=== PATIENT | female | born 1980 | race Hispanic/Latino ===

== ENCOUNTER 2020-03-30 14:57 | Emergency (ER) | payer OTHER ==
[~2020-03-30] VITALS: Ht 162.6 cm; Wt 103.4 kg
--- OUTSIDE RECORDS SUMMARY | 2020-03-30 14:59 | XMS REPORT ---
Author Author [facility] Organization [facility] Address Unknown Phone Unavailable Care Team Providers Care Engineering Analyst Name Role Phone Elen LEE PP Unavailable TANIYA GAMBLE Unavailable Unavailable ALL LEE M.D. Unavailable Unavailable Problems This patient has no known problems. Allergies, Adverse Reactions, Alerts This patient has no known allergies or adverse reactions. Medications This patient has no known medications. Encounters Start Date/Time End Date/Time [facility] ID 2017-10-25 09:19:00 2017-10-25 09:19:00 Outpatient [facility] [id number] 2017-09-27 10:50:00 2017-09-27 10:50:00 Outpatient [facility] [id number] Results Test Description Test Time Test Comments Text Results Atomic Results Result Comments NEEDLE EMG, 2 EXTREMITY 2018-09-01 17:43:00 INTR AOPERATIVE MONITORING REPORT Patient Name: Citlali Valdez [facility] Surgery Date: 08/22/2018 Pro: S/N - [id number] Monitoring began at 06:44 and ended at 09:30 Surgeon: Benjamin Gamble M.D. Examining Neurologist: Dora Estrada MD Monitoring Technologists: KONSTANTIN Ball Procedure:Lumbar Laminectomy and Discectomy L5-S1 Free-running EMG of the left and right Tibialis Anterior (L4-5), Lateral Gastrocnemius (L5-S2), and Abductor Hallicus (S1-2)muscle groups. After the initial short-acting intubation muscle relaxants wore off, Train of Four (TO4) neuro-muscluar junction testing consistently produced at least 2 out of 4 responses which helps to validate the sensitivity of all other EMG and/or motor function monitoring. Description : Intraoperative neurophysiological monitoring was performed using free-running EMG of L4-S2 innervated muscle groups. A real-time connection with the examining neurologist was established and maintained throughout the operative procedure by the monitoring technologist. Free-running EMG of L4-S2 innervated muscle group was monitored continuously throughout the operative procedure with no sustained neurotonic discharges seen. Conclusion : The absence of sustained neurotonic discharges on free-running EMG suggests that the nerve roots monitored remained undisturbed. Dora Estrada M.D. M51.36, M54.16 UE EXAM 2018-08-29 15:49:00 Surgical Pat hology Report Case: [id number] Authorizing Provider: Benjamin Gamble MD Collected: 08/22/2018 0748 Ordering Location: [facility] PERIOPERATIVE Received: 08/22/2018 0926 SERVICES Pathologist: Yury Modi MD Specimen: Disc L5-S1 VERTEBRAL COLUMN, INTERVERTEBRAL DISC, L5-S1, DISCECTOMY:FRAGMENTS OF FIBROCARTILAGE WITH MILD DEGENERATIVE CHANGESFRAGMENTS OF LIGAMENTUM FLAVUM AND BONE Signing Pathologist Direct Phone Line: [phone] signed by Yury Moid MD on 08/29/2018 at 3:49 [id number]; [id number] disc disease lumbar, lumbar radiculopathy Disc L5-M0Kqezszjy in saline labeled "disc L5-S1" is a 2.5 x 2.0 x 0.3 cm aggregate of pink-watkins to valencia-white, rubbery, fibrillar, cartilaginous and osseous tissue. The specimen is entirely submitted in cassette A1 for decalcification. KAH/DB/ew Performed FL, TRAINING INTERN IN OR/30 MINUTE INCREMENTS 2018-08-22 07:46:00 Reason for exam:- >lumbar stenosis FINAL REPORT Tech nique: Single intraoperative image of the lumbar spine FINDINGS: Surgical pointer projects posteriorly at L5-S1. Findings were discussed with Dr. Gamble in the operating room who agreed. Signed: Sumaya Simon MDReport Verified Date/Time: 08/22/2018 07:46:20 Reading Location: [facility] Radiology Reading Room ALYSIS W/ REFLEX URINE CULTURE 2018-08-19 15:23:00 COLOR (BEAKER) (test code = 470) Colorless CLARITY (BEAKER) (test code = 469) Clear SPECIFIC GRAVITY UA (BEAKER) (test code = 468) 1.001 1 .001-1.035 PH UA (BEAKER) (test code = 467) 6.5 5.0-8.0 PROTEIN UA (BEAKER) (test code = 464) Negative Negative GLUCOSE UA (BEAKER) (test code = 365) Negative Negative KETONES UA (BEAKER) (test code = 371) Negative Negative BILIRUBIN UA (BEAKER) (test code = 462) Negative Negative BLOOD UA (BEAKER) (test code = 461) Negative Negative NITRITE UA (BEAKER) (test code = 465) Negative Negative LEUKOCYTE ESTERASE UA (BEAKER) (test code = 466) Negative Negative UROBILINOGEN UA (BEAKER) (test code = 463) 0.2 mg/dL 0.2-1 .0 RBC UA (BEAKER) (test code = 519) < /HPF WBC UA (BEAKER) (test code = 520) < /HPF SQUAMOUS EPITHELIAL (BEAKER) (test code = 516) < /HPF SOURCE(BEAKER) (test code = 2795) RAD, CHEST, 2 [id number] 14:33:00Reason for Exam:->preopFINAL REPORT Chest, 2 views. Clinical History: preop Comparison Study: None Findings: The heart and lungs are within normal limits. The pleural spaces are clear. No significant bony or soft tissue abnormalities are seen. Cholecystectomy clips are noted. Impression: No active cardiopulmonary disease. Signed: Rolando Albertoeport Verified Date/Time: 08/19/2018 14:33:20 Reading Location: [address] Radiology Reading Room Electronically sign ed by: ROLANDO ALBERTO M.D. on 08/19/2018 02:33 PM BASIC METABOLIC PANEL 2018-08-19 13:27:00* Test Item Value Reference Range Comments SODIUM (BEAKER) (test code = 381) 137 meq/L 136-145 POTASSIUM (BEAKER) (test code = 379) 3.8 meq/L 3.5-5.1 CHLORIDE (BEAKER) (test code = 382) 105 meq/L 98-107 CO2 (BEAKER) (test code = 355) 25 meq/L 22-29 BLOOD UREA NITROGEN (BEAKER) (test code = 354) 10 mg/dL 7 -21 CREATININE (BEAKER) (test code = 358) 0.70 mg/dL 0.57-1.25 GLUCOSE RANDOM (BEAKER) (test code = 652) 85 mg/dL 70-105 CALCIUM (BEAKER) (test code = 697) 9.5 mg/dL 8.4-10.2 EGFR (BEAKER) (test code = 1092) 94 mL/min/1.73 sq m ESTIMATED GFR IS NOT ACCURATE CREATININE CLEARANCE IN PREDICTING GLOMERULAR FILTRATION RATE. ESTIMATED GFR IS NOT APPLICABLE FOR DIALYSIS PATIENTS. PT/[id number] 13:15:00* Test Item Value Reference Range Comments PROTIME (BEAKER) (test code = 759) 13.4 seconds 11.7-14.7 INR (BEAKER) (test code = 370) 1.0 <=5.9 PARTIAL THROMBOPLASTIN TIME (BEAKER) (test code = 760) 34.1 seco nds 22.5-36.0 RECOMMENDED COUMADIN/WARFARIN INR THERAPY RANGESSTANDARD DOSE: 2.0 - 3.0 Inclu edmar: PROPHYLAXIS for venous thrombosis, systemic embolization; TREATMENT for saulo ous thrombosis and/or pulmonary embolus.HIGH RISK: Target INR is 2.5-3.5 for pat ients with mechanical heart valves.CBC W/PLT COUNT & AUTO [id number] 13:04:00* Test Item Value Reference Range Comments WHITE BLOOD CELL COUNT (BEAKER) (test code = 775) 11.2 K/ L 3.5-10.5 RED BLOOD CELL COUNT (BEAKER) (test code = 761) 5.21 M/ L 3.93-5.22 HEMOGLOBIN (BEAKER) (test code = 410) 14.1 GM/DL 11.2-15.7 HEMATOCRIT (BEAKER) (test code = 411) 45.1 % 34.1-44.9 MEAN CORPUSCULAR VOLUME (BEAKER) (test code = 753) 86.6 fL 79.4-94.8 MEAN CORPUSCULAR HEMOGLOBIN (BEAKER) (test code = 751) 27.1 pg 25.6-32.2 MEAN CORPUSCULAR HEMOGLOBIN CONC (BEAKER) (test code = 752) 31.3 GM/DL 32.2-35.5 RED CELL DISTRIBUTION WIDTH (BEAKER) (test code = 412) 14.7 % 11.7-14.4 PLATELET COUNT (BEAKER) (test code = 756) 451 K/CU MM 150-45 0 MEAN PLATELET VOLUME (BEAKER) (test code = 754) 8.6 fL 9.4-12.3 NUCLEATED RED BLOOD CELLS (BEAKER) (test code = 413) 0 /100 WBC 0-0 NEUTROPHILS RELATIVE PERCENT (BEAKER) (test code = 429) 66 % LYMPHOCYTES RELATIVE PERCENT (BEAKER) (test code = 430) 26 % MONOCYTES RELATIVE PERCENT (BEAKER) (test code = 431) 7 % EOSINOPHILS RELATIVE PERCENT (BEAKER) (test code = 432) 1 % BASOPHILS RELATIVE PERCENT (BEAKER) (test code = 437) 0 % NEUTROPHILS ABSOLUTE COUNT (BEAKER) (test code = 670) 7.40 K/ L 1.56-6.13 LYMPHOCYTES ABSOLUTE COUNT (BEAKER) (test code = 414) 2.89 K/ L 1.18-3.74 MONOCYTES ABSOLUTE COUNT (BEAKER) (test code = 415) 0.76 K/ L 0.24-0.36 EOSINOPHILS ABSOLUTE COUNT (BEAKER) (test code = 416) 0.08 K/ L 0.04-0.36 BASOPHILS ABSOLUTE COUNT (BEAKER) (test code = 417) 0.05 K/ L 0.01-0.08 IMMATURE GRANULOCYTES-RELATIVE PERCENT (BEAKER) (test code = 280 1) 0 % 0-1 RPR, [id number] 05:26:00* Test Item Value Reference Range Comments RPR (test code = RPR) Non-Reactive Non-Reactive [id number] 05:09:00* Test Item Value Reference Range Comments WBC (test code = WBC) 12.5 K/cumm 4.4-10.5 RBC (test code = RBC) 3.29 M/cumm 3.75-5.20 Hemoglobin (test code = HGB) 9.2 gm/dL 12.2-14.8 Hematocrit (test code = HCT) 28.0 % 36.5-44.4 MCV (test code = MCV) 85.3 fL 80-100 MCH (test code = MCH) 28.0 pg 27.0-32.5 MCHC (test code = MCHC) 32.9 g/dL 32.0-37.5 RDW (test code = RDW) 14.1 % 11.5-14.5 Platelet Count (test code = PLTCT) 353 K/cumm 140-440 MPV (test code = MPV) 6.3 fL POC Glucose, [id number] 15:18:00* Test Item Value Reference Range Comments POC Glucose (test code = POCGLUC) 41 mg/dL 70-115 Maurisio specimen Blood Gas+pH+[id number] 15:07:00* Test Item Value Reference Range Comments pH, Blood Gas (test code = BGPH) 7.309 pH Units pCO2 (test code = PCO2) 54.0 mm Hg Bicarbonate (test code = HCO3) 27.1 Base Excess (test code = BE) -0.5 mmol/L tHB (test code = RTHB) 17.2 gm/dL Hematocrit, Blood Gas (test code = BGHCT) 52.6 % FIO2 % (test code = FIO2) 21 % Patient Temperature (test code = PTTEMP) 37.0 Degrees Celcius Comment (test code = COMMENT) NICPH Puncture Site (test code = PUNSITE) Umbilical Drawing Tech ID (test code = DRAWTECH) .Get. Respiratory Rate (test code = RESP RATE) 0 Blood Type and [id number] 14:08:00* Test Item Value Reference Range Comments ABO type (test code = ABO) O Rh Type (test code = RH) Positive Antibody Screen - [id number] 14:08:00* Test Item Value Reference Range Comments Antibody Screen (test code = ABSCR) Negative Hep B Surface [id number] 13:11:00* Test Item Value Reference Range Comments Hep Bs Ag (test code = HBSAG) Nonreactive Non-Reactive CBC LD with [id number] 13:08:00* Test Item Value Reference Range Comments WBC (test code = WBC) 11.0 K/cumm 4.4-10.5 RBC (test code = RBC) 4.01 M/cumm 3.75-5.20 Hemoglobin (test code = HGB) 11.1 g/dL 12.2-14.8 Hematocrit (test code = HCT) 34.3 % 36.5-44.4 MCV (test code = MCV) 85.7 fL 80.0-100.0 MCH (test code = MCH) 27.7 pg 27.0-32.5 MCHC (test code = MCHC) 32.3 g/dL 32.0-37.5 RDW (test code = RDW) 14.3 % 11.5-14.5 Platelet Count (test code = PLTCT) 393 K/cumm 140-440 MPV (test code = MPV) 6.7 fL Diff Method (test code = DIFFM) Auto Neutrophil (test code = NEUT) 67.7 % 36.0-70.0 Lymphocyte (test code = LYMPH) 24.5 % 12.0-44.0 Monocyte (test code = MONO) 6.2 % 0.0-11.0 Eosinophil (test code = EOS) 1.2 % 0.0-7.0 Basophil (test code = BASO) 0.4 % 0.0-2.0 Neutro Abs (test code = ANEUT) 7.4 K/cumm 1.6-7.4 Lymph Abs (test code = ALYMPH) 2.7 K/cumm 0.5-4.6 [place] Abs (test code = AMONO) 0.7 K/cumm 0.0-1.2 Eos Abs (test code = AEOS) 0.1 K/cumm 0.0-0.7 Baso Abs (test code = ABASO) 0.0 K/cumm 0.0-0.2
[2020-03-30] MEDS ORDERED: ONDANSETRON HCL INJ 2MG/ML 2ML 2 MG/ML VIAL IV ONE (15:24)
[2020-03-30] MEDS ORDERED: SODIUM CHLORIDE 0.9% 1000ML 1,000 ML IV STA (15:24)
[2020-03-30] MEDS ORDERED: DICYCLOMINE HCL 20 MG/2 ML VIAL IM ONE (15:30)
[2020-03-30] MEDS ORDERED: MORPHINE SULFATE INJ 4 MG/ML INJ 1ML IV ONE ×2 (17:30→20:30)
[2020-03-30 17:52] LABS: COLOR,URINE AMBER (YELLOW); KETONES,URINE 3+ (NEGATIVE); LEUKOCYTE ESTERASE ,URINE NEGATIVE (NEGATIVE); NITRITE,URINE NEGATIVE (NEGATIVE); PROTEIN,URINE DIPSTICK 2+ (NEGATIVE)
[2020-03-30 17:53] LABS: BILIRUBIN,URINE SMALL (NEGATIVE); URINE UROBILINOGEN 1 mg/dL (0.2 - 1)
[2020-03-30 17:54] LABS: CLARITY,URINE CLOUDY (CLEAR)
[2020-03-30 18:03] LABS: RBC,URINE 0-5 /HPF (0-5)
[2020-03-30 18:06] LABS: BACTERIA,URINE RARE /HPF; EPITHELIAL CELLS,URINE FEW /LPF
[2020-03-30 18:34] LABS: BASOPHILS # (AUTO) 0.1 (0.0-0.1); BASOPHILS % 0.3 % (0.0-1.0); EOSINOPHILS # (AUTO) 0.1 (0.0-0.4); EOSINOPHILS % 0.8 % (0.0-6.0); HEMATOCRIT 43.3 % (34.2-44.1); HEMOGLOBIN 13.8 g/dL (12.0-16.0); LYMPHOCYTES # (AUTO) 3.1 (1.0-3.2); LYMPHOCYTES % 20.6 % (18.0-39.1); MEAN CORPUSCULAR HEMOGLOBIN 28.2 pg (28-32); MEAN CORPUSCULAR HGB CONC 31.9 g/dL (31-35); MEAN CORPUSCULAR VOLUME 88.4 fL (81-99); MONOCYTES # (AUTO) 0.9 (0.2-0.8); MONOCYTES % 5.9 % (4.4-11.3); NEUTROPHILS # (AUTO) 10.6 (2.1-6.9); NEUTROPHILS % 72.1 % (38.7-80.0); PLATELET COUNT 329 x10e3/uL (140-360)
[2020-03-30 18:54] LABS: ALANINE AMINOTRANSFERASE 26 IU/L (0-55); ALBUMIN 3.7 g/dL (3.5-5.0); ALKALINE PHOSPHATASE 105 IU/L (40-150); ANION GAP 14.4 mmol/L (8-16); BLOOD UREA NITROGEN 7 mg/dL (7-26); BUN/CREATININE RATIO 9 (6-25); CALCIUM 9.3 mg/dL (8.4-10.2); CARBON DIOXIDE 25 mmol/L (22-29); CHLORIDE 105 mmol/L (98-107); CREATININE, SERUM 0.81 mg/dL (0.57-1.11); EST GLOMERULAR FILTRATION RATE > 60 ML/MIN (60-); GLUCOSE 87 mg/dL (74-118); LIPASE 7 U/L (8-78); POTASSIUM 3.4 mmol/L (3.5-5.1); SODIUM 141 mmol/L (136-145)
[2020-03-30] MEDS ORDERED: ONDANSETRON HCL INJ 2MG/ML 2ML 2 MG/ML VIAL IV STA (19:53)
--- NOTE | 2020-03-30 20:08 | Diagnostic Imaging Report ---
CT Abdomen And Pelvis with Intravenous Contrast INDICATION: ^LEFT LOWER ABD PAIN ^[id number] ^[id number] TECHNIQUE: Thin collimation axial images obtained from the diaphragm to the level of the pubic symphysis following the uneventful administration of 100 cc of low osmolar, nonionic intravenous contrast. Dose reduction techniques used: Automated exposure control, adjustment of the mAs and/or kVp according to patient size, standardized low-dose protocol, and/or iterative reconstruction technique. RADIATION DOSE: Total DLP: 841.72 mGy*cm Estimated effective dose: (DLP x 0.015 x size factor) mSv CTDIvol has been reviewed. It is below the limits set by the Radiation Protocol Committee (RPC). COMPARISON: None. ABDOMEN FINDINGS: Lung Bases: Clear. The visualized portions of the mediastinum are normal. Liver: Steatosis. No evidence for mass. Gallbladder: Absent. No biliary ductal dilatation. Pancreas: Normal attenuation without mass or ductal dilatation. Spleen: Normal in size. No evidence of mass. Adrenal Glands: No evidence for mass. Kidneys: Right: Normal enhancement. No soft tissue mass. No hydronephrosis. Left: Normal enhancement. No soft tissue mass. No hydronephrosis. Lymph Nodes: No lymphadenopathy. Aorta: Normal in diameter PELVIS FINDINGS: Bowel: Stomach: Normal. Small Bowel: Normal in caliber with normal wall thickness. Large Bowel: Diverticulosis of the descending colon. There is no plain diverticulum in the mid/distal descending colon without associated fluid collection. No significant diverticulosis of the sigmoid colon Appendix: Normal. Bladder: Normal. The uterus is present and contains an intrauterine device in appropriate position. No adnexal mass. Peritoneum/retroperitoneum: Trace amount of fluid along the left paracolic. No free air. No loculated fluid collection. Bones: Unremarkable for age. IMPRESSION: 1. Acute diverticulitis of the descending colon. No abscess formation. 2. Steatosis. 3. Cholecystectomy. Signed by: Dr. Khoi Frances MD on 03/30/2020 8:05 PM
[2020-03-30] MEDS ORDERED: CIPROFLOXACIN 500 MG TAB PO ONE (20:30)
[2020-03-30] MEDS ORDERED: METRONIDAZOLE 500 MG TAB PO ONE (20:30)
--- NOTE | 2020-03-30 20:35 | NUR ---
PT MEDICATED FOR PAIN PER MERRY GO ROUND OPERATOR ORDERS, TOLERATED WELL, V/S/S
[2020-03-30] MEDS ORDERED: SODIUM CHLORIDE 0.9% 50ML 50 ML ONE (21:07)
[2020-03-30] MEDS ORDERED: IOPAMIDOL 370 MG/ML 200 ML INFUS..BTL INJ ONE (21:08)
== END 2020-03-31 00:15 | disposition home or self-care (01) ==
LOC: ER 14:57
DX: R10.32 Left lower quadrant pain (principal); R11.0 Nausea; K57.32 Diverticulitis of large intestine without perforation or abscess without bleeding
CPT/HCPCS: 36415; 74177; 80053; 81001; 81025; 83690; 85025; 99284; J0500; J2270; J2405; J7030; Q9967

== ENCOUNTER 2020-04-05 09:39 | Inpatient (IN) | payer OTHER ==
[~2020-04-05] VITALS: Ht 162.6 cm; Wt 103.4 kg
--- OUTSIDE RECORDS SUMMARY | 2020-04-05 09:42 | XMS REPORT | Clinical Summary ---
Author Author [facility] Organization [facility] Address Unknown Phone Unavailable Care Team Providers Care Head Of Music Name Role Phone Asked, No Pcp PCP Unavailable Allergies No Known Allergies Medications No known medications Active Problems Not on file Family History Medical History Relation Name Comments Stroke Maternal Grandmother Diabetes Paternal Grandfather Relation Name Status Comments Father Alive Maternal Grandfather Maternal Grandmother Mother Alive Paternal Grandfather Paternal Grandmother Alive Social History Date Tobacco Use Types Packs/Day Years Used Quit: 05/05/2017 Former Smoker Cigarettes Smokeless Tobacco: Never Used Tobacco Cessation: Counseling Given: No Drinks/Week oz/Week Comments Alcohol Use No Sex Assigned at Date Recorded Not on file Industry Job Start Date Occupation Not on file Not on file Not on file Travel End Travel History Travel Start No recent travel history available. Last Filed Vital Signs Not on file Plan of Treatment Health Maintenance Due Date Last Done Comments CERVICAL CANCER SCREENING 2001 INFLUENZA VACCINE 06/25/2020 Results Not on fileafter 04/05/2019 Insurance Type Payer Benefit Subscriber ID Effective Phone Address Plan / Dates Group [facility] xxxxxxxxx 20 [id number] PLAN [facility] Advance Directives For more information, please contact: [phone] Patient Scrap Drop Operator Explanation Type Date Recorded Advance Directives, 02/23/2016 2:18 PM Living Will and Medical Power of Supervisor Sample Preparation Advance Directives, 10/05/2017 7:00 PM Living Will and Medical Power of Supervisor Sample Preparation Advance Directives, 03/25/2018 6:53 PM Living Will and Medical Power of Supervisor Sample Preparation
--- OUTSIDE RECORDS SUMMARY | 2020-04-05 09:42 | XMS REPORT | Clinical Summary ---
Author Author [facility]ID [facility] Address Unknown Phone Unavailable Care Team Providers Care Aerodynamicist Name Role Phone Faby Romero PCP Allergies Comments Active Allergy Reactions Severity Noted Date Latex Rash Low 08/19/2018 Throat swells up Pork/Porcine Containing Shortness Of High 2017 Products Breath, Itching Medications End Date Status Medication Sig Dispensed Refills Start Date Active gabapentin (NEURONTIN) Take 300 mg 0 300 MG capsule by mouth 3 (three) times daily. Active Problems Problem Noted Date Lumbar radiculopathy 08/22/2018 DDD (degenerative disc disease), lumbar 08/22/2018 Social History Date Tobacco Use Types Packs/Day Years Used Never Smoker Smokeless Tobacco: Never Used Alcohol Use Drinks/Week oz/Week Comments No Sex Assigned at Date Recorded Not on file Industry Job Start Date Occupation Not on file Not on file Not on file Travel End Travel History Travel Start No recent travel history available. Last Filed Vital Signs Not on file Plan of Treatment Not on file Implants Device Identifier Shelf Expiration Date Model / Serial / L ot Implanted Type Area Manufactur er 12/10/2019 [id number] / / [id number] Floseal Vhsd Full Strlprep 5ml Cement/Tez Spine Lumbar [id number] - [id number] ler/Adhesi SCI Implanted: Qty: 2 on 08/22/2018 by Benjamin Weston MD Results Not on fileafter 04/05/2019 Insurance Payer Benefit Subscriber ID Type Phone Address Plan / Group MEDICAID - MEDICAID [place]GD MEDICAID xxxxxxxxx Medica id [facility] Contracted MEDICAID MEDICAID xxxxxxxxx [place] [id number] Advance Directives For more information, please contact: [place] [id number] [place] [address] Date Inactivated Comments Code Status Date Activated 08/22/2018 6:17 PM Full Code 08/22/2018 5:30 AM This code status was determined by: Patient
[2020-04-05] MEDS ORDERED: ONDANSETRON HCL INJ 2MG/ML 2ML 2 MG/ML VIAL IV STA (09:49)
[2020-04-05] MEDS ORDERED: MORPHINE SULFATE INJ 4 MG/ML INJ 1ML IV PRN ×2 (10:00→14:15)
[2020-04-05] MEDS ORDERED: SODIUM CHLORIDE 0.9% 1000ML 1,000 ML IV SCH (10:00)
[2020-04-05 10:20] LABS: BASOPHILS # (AUTO) 0.1 (0.0-0.1); BASOPHILS % 0.4 % (0.0-1.0); EOSINOPHILS # (AUTO) 0.2 (0.0-0.4); EOSINOPHILS % 1.3 % (0.0-6.0); HEMATOCRIT 43.5 % (34.2-44.1); HEMOGLOBIN 14.2 g/dL (12.0-16.0); LYMPHOCYTES # (AUTO) 2.8 (1.0-3.2); LYMPHOCYTES % 23.7 % (18.0-39.1); MEAN CORPUSCULAR HGB CONC 32.6 g/dL (31-35); MEAN CORPUSCULAR VOLUME 85.8 fL (81-99); MONOCYTES # (AUTO) 0.8 (0.2-0.8); MONOCYTES % 6.5 % (4.4-11.3); NEUTROPHILS % 67.8 % (38.7-80.0); PLATELET COUNT 387 x10e3/uL (140-360); RED BLOOD COUNT 5.07 x10e6/uL (3.6-5.1); RED CELL DISTRIBUTION WIDTH 13.6 % (11.7-14.4)
[2020-04-05 10:30] LABS: CLARITY,URINE SL CLOUDY (CLEAR); COLOR,URINE ORANGE (YELLOW); LEUKOCYTE ESTERASE ,URINE TRACE (NEGATIVE); NITRITE,URINE NEGATIVE (NEGATIVE)
[2020-04-05 10:31] LABS: PROTEIN,URINE DIPSTICK 1+ (NEGATIVE); URINE UROBILINOGEN 0.2 mg/dL (0.2 - 1)
[2020-04-05 10:32] LABS: BILIRUBIN,URINE MODERATE (NEGATIVE)
[2020-04-05 10:33] LABS: KETONES,URINE >=160 (NEGATIVE)
[2020-04-05 10:38] LABS: BACTERIA,URINE RARE /HPF; EPITHELIAL CELLS,URINE FEW /LPF; RBC,URINE 21-50 /HPF (0-5); WBC,URINE (MAN) >50 /HPF (0-5)
[2020-04-05 10:40] LABS: ALANINE AMINOTRANSFERASE 49 IU/L (0-55); ALBUMIN 3.8 g/dL (3.5-5.0); ALBUMIN/GLOBULIN RATIO 0.9 (0.8-2.0); ALKALINE PHOSPHATASE 98 IU/L (40-150); ANION GAP 16.3 mmol/L (8-16); BLOOD UREA NITROGEN 7 mg/dL (7-26); BUN/CREATININE RATIO 8 (6-25); CALCIUM 9.4 mg/dL (8.4-10.2); CARBON DIOXIDE 22 mmol/L (22-29); CHLORIDE 107 mmol/L (98-107); CREATINE KINASE 60 IU/L (29-168); CREATININE, SERUM 0.84 mg/dL (0.57-1.11); EST GLOMERULAR FILTRATION RATE > 60 ML/MIN (60-); GLUCOSE 104 mg/dL (74-118); POTASSIUM 3.3 mmol/L (3.5-5.1); SODIUM 142 mmol/L (136-145)
[2020-04-05 10:57] LABS: INR 0.97; PROTHROMBIN TIME 13.5 seconds (11.9-14.5)
--- NOTE | 2020-04-05 12:52 | Diagnostic Imaging Report ---
CT of the abdomen and pelvis, with contrast. History: Abdominal pain. Comparison: CT abdomen/pelvis with contrast from 03/30/2020. Technique: Multidetector CT scanning of the abdomen and pelvis was performed from the level of the lung bases to the inferior pubic rami after intravenous administration of contrast. Coronal and sagittal multiplanar reformations were obtained. RADIATION DOSE: Total DLP: 875.00 mGy*cm Dose modulation, iterative reconstruction, and/or weight based adjustment of the mA/kV was utilized to reduce the radiation dose to as low as reasonably achievable. FINDINGS: The lung bases are unremarkable. The imaged portion of the heart demonstrates no significant abnormalities. The liver is diffusely decreased in attenuation compatible with fatty infiltration. No focal hepatic abnormality is identified. The gallbladder is surgically absent. There is no biliary ductal dilatation. The stomach, spleen, pancreas, and bilateral adrenal glands are unremarkable. Instantly noted is a splenule adjacent to the spleen. The kidneys are normal in size and location and enhance symmetrically. There is no evidence for hydronephrosis. The ureters are normal in course and caliber without evidence for radiopaque stone or abnormal dilatation. The urinary bladder demonstrates no significant abnormalities. An intrauterine device is identified in place. The uterus and adnexa are otherwise grossly unremarkable. The abdominal aorta is normal course and caliber. The IVC is unremarkable. Please note evaluation the bowel is limited without the use of enteric contrast material. Again identified is wall thickening and adjacent inflammatory change about the descending colon in the region of diverticula. Adjacent inflammatory change is slightly less prominent than from the prior examination from 03/30/2020. There is no evidence for perforation or organized fluid collection to suggest abscess rotation. The remaining visualized loops of small and large bowel demonstrate no evidence of obstruction or inflammation. The appendix is visualized and appears unremarkable. There is no ascites or intraperitoneal free air. No abnormally enlarged lymph nodes are identified within the abdomen or pelvis. The osseous structures demonstrate no evidence for acute fracture or destructive process. The extraperitoneal soft tissues are unremarkable. IMPRESSION: Again identified are CT findings compatible with acute diverticulitis of the descending colon with slight interval reduction in adjacent inflammatory change. No evidence for perforation or abscess from a patient. CT findings suggestive of hepatic steatosis. Signed by: Dr. Aly Oliveros MD on 04/05/2020 12:48 PM
--- NOTE | 2020-04-05 14:16 | Emergency Department Note ---
History of Present Illnes History of Present Illness Chief Complaint: Abdominal Complaints Stated Complaint: ABD PAIN History of Present Illness This is a 39 year old female complaining of continued LLQ pain for >1 week, went to her PCP today and was told to come to the ED for further management. Historian: Patient Onset (how long ago): day(s) Radiation: non-radiation Severity: moderate Onset quality: gradual Duration (how long): day(s) Progression: worsening Previous service: tests performed, one or more referrals Past Medical/Family History Physician Review I have reviewed the patient's past medical and family history. Any updates have been documented here. Past Medical History Recent Fever: No Clinical Suspicion of Infectio: No New/Unexplained Change in Ment: No Past Medical History: TIA Other Medical History: IBSD, DIVERTICULITIS Past Surgical History: Cholecysctectomy, Social History Smoking Cessation: Former smoker Counseling Performed: No Alcohol Use: None Any Illegal Drug Use: No TB Exposure/Symptoms: No Physically hurt or threatened: No Other Last Tetanus: UNKNOWN Any Pre-Existing Lines (PICC,: No Is patient up to date on immun: No Last Flu: unk Last Pneumovax: ood Review of Systems Review of Systems Constitutional: no symptoms EENTM: no symptoms Cardiovascular: no symptoms Gastointestinal/Abdominal: no symptoms, abdominal pain, nausea, vomiting Genitourinary: no symptoms Musculoskeletal: no symptoms Integumentary: no symptoms Neurological: no symptoms Psychological: no symptoms Endocrine: no symptoms Hematological/Lymphatic: no symptoms Review of other systems All other systems reviewed and negative. Physical Exam Related Data Allergies: Coded Allergies: No Known Allergies (Unverified , 03/30/20) Triage Vital Signs Vital Signs Date Time Temp Pulse Resp B/P (MAP) Pulse Ox O2 Delivery O2 Flow Rate FiO2 04/05/20 09:42 97.7 71 18 146/95 98 Physical Exam CONSTITUTIONAL Constitutional: well-developed, well-nourished HENT HENT: normocephalic, atraumatic, oropharynx clear/moist, nose normal HENT - Ear: left ext ear normal, right ext ear normal EYES Eyes: PERRL, conjunctivae normal NECK Neck: ROM normal PULMONARY Pulmonary: effort normal, breath sounds normal CARDIOVASCULAR Cardiovascular: regular rhythm, heart sounds normal, capillary refill normal, normal rate GASTROINTESTINAL Abdominal: soft, bowel sounds normal, tender GENITOURINARY Genitourinary: exam deferred SKIN Skin: warm, dry MUSCULOSKELETAL Musculoskeletal: ROM normal NEUROLOGICAL Neurological: alert, oriented x 3, no gross motor or sensory deficits PSYCHOLOGICAL Psychiatric/behavioral: mood/affect normal (tearful), judgement normal Results Laboratory Lab results reviewed: Yes Laboratory comments Laboratory Tests Test 04/05/20 10:20 04/05/20 09:55 Prothrombin Time 13.5 seconds (11.9-14.5) Prothromb Time International Ratio 0.97 White Blood Count 11.76 x10e3/uL (4.8-10.8) Red Blood Count 5.07 x10e6/uL (3.6-5.1) Hemoglobin 14.2 g/dL (12.0-16.0) Hematocrit 43.5 % (34.2-44.1) Mean Corpuscular Volume 85.8 fL (81-99) Mean Corpuscular Hemoglobin 28.0 pg (28-32) Mean Corpuscular Hemoglobin Concent 32.6 g/dL (31-35) Red Cell Distribution Width 13.6 % (11.7-14.4) Platelet Count 387 x10e3/uL (140-360) Neutrophils (%) (Auto) 67.8 % (38.7-80.0) Lymphocytes (%) (Auto) 23.7 % (18.0-39.1) Monocytes (%) (Auto) 6.5 % (4.4-11.3) Eosinophils (%) (Auto) 1.3 % (0.0-6.0) Basophils (%) (Auto) 0.4 % (0.0-1.0) Neutrophils # (Auto) 8.0 (2.1-6.9) Lymphocytes # (Auto) 2.8 (1.0-3.2) Monocytes # (Auto) 0.8 (0.2-0.8) Eosinophils # (Auto) 0.2 (0.0-0.4) Basophils # (Auto) 0.1 (0.0-0.1) Absolute Immature Granulocyte (auto 0.03 x10e3/uL (0-0.1) Urine Color [place] (YELLOW) Urine Clarity Sl cloudy (CLEAR) Urine pH 6.5 (5 - 7) Urine Specific [place] >=1.030 (1.010-1.025) Urine Protein 1+ (NEGATIVE) Urine Glucose (UA) Negative (NEGATIVE) Urine Ketones >=160 (NEGATIVE) Urine Blood Trace (NEGATIVE) Urine Nitrite Negative (NEGATIVE) Urine Bilirubin Moderate (NEGATIVE) Urine Urobilinogen 0.2 mg/dL (0.2 - 1) Urine Leukocyte Esterase Trace (NEGATIVE) Urine RBC 21-50 /HPF (0-5) Urine WBC >50 /HPF (0-5) Urine Epithelial Cells Few /LPF (NONE) Urine Bacteria Rare /HPF (NONE) Urine Test Negative (NEGATIVE) Sodium Level 142 mmol/L (136-145) Potassium Level 3.3 mmol/L (3.5-5.1) Chloride Level 107 mmol/L (98-107) Carbon Dioxide Level 22 mmol/L (22-29) Anion Gap 16.3 mmol/L (8-16) Blood Urea Nitrogen 7 mg/dL (7-26) Creatinine 0.84 mg/dL (0.57-1.11) Estimat Glomerular Filtration Rate > 60 ML/MIN (60-) BUN/Creatinine Ratio 8 (6-25) Glucose Level 104 mg/dL (74-118) Calcium Level 9.4 mg/dL (8.4-10.2) Total Bilirubin 0.3 mg/dL (0.2-1.2) Aspartate Amino Transf (AST/SGOT) 49 IU/L (5-34) Alanine Aminotransferase (ALT/SGPT) 49 IU/L (0-55) Alkaline Phosphatase 98 IU/L (40-150) Creatine Kinase 60 IU/L (29-168) Creatine Kinase MB 0.90 ng/mL (0-5.0) Troponin I < 0.001 ng/mL (0-0.300) Total Protein 7.9 g/dL (6.5-8.1) Albumin 3.8 g/dL (3.5-5.0) Globulin 4.1 g/dL (2.3-3.5) Albumin/Globulin Ratio 0.9 (0.8-2.0) Lipase 12 U/L (8-78) Imaging Y: Yes Impressions IMPRESSION: Again identified are CT findings compatible with acute diverticulitis of the descending colon with slight interval reduction in adjacent inflammatory change. No evidence for perforation or abscess from a patient. CT findings suggestive of hepatic steatosis. Signed by: Dr. Aly Oliveros MD on 04/05/2020 12:48 PM Diagnostics Tests Diagnostic test(s) reviewed: Yes Critical Care Time Subsequent provider I assumed direction of critical care for this patient from another provider of my specialty. Assessment & Plan Assessment & Plan Problems: (1) Diverticulitis Assessment & Plan Diverticulitis -Continued pain and inability tolerated oral intake -Levaquin and Flagyl initiated -Dr. Silvino Georges consulted Last Vital Signs Date Time Temp Pulse Resp B/P (MAP) Pulse Ox O2 Delivery O2 Flow Rate FiO2 04/05/20 09:42 97.7 71 18 146/95 98 Medications in the ED Morphine Sulfate 6 mg ONCE PRN IV SEVERE PAIN (7-10); Start 04/05/20 at 10:00; Stop 04/12/20 at 09:59; Status UNV Ondansetron HCl 4 mg NOW STAT IV ; Start 04/05/20 at 09:49; Stop 04/05/20 at 09:50; Status UNV Sodium Chloride 1,000 ml @ 0 mls/hr Q0M IV ; Start 04/05/20 at 10:00; Stop 05/05/20 at 09:59; Status UNV OLIVIA RUTH DO April 05, 2020 10:15
[2020-04-05] MEDS ORDERED: IOPAMIDOL 370 MG/ML 200 ML INFUS..BTL INJ ONE (14:40)
[2020-04-05] MEDS ORDERED: SODIUM CHLORIDE 0.9% 50ML 50 ML ONE (14:40)
[2020-04-05] MEDS: ONDANSETRON HCL INJ 2MG/ML 2ML 2 MG/ML VIAL IV PRN ×2 (14:47→17:58)
--- OUTSIDE RECORDS SUMMARY | 2020-04-05 14:48 | XMS REPORT | Clinical Summary ---
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
--- OUTSIDE RECORDS SUMMARY | 2020-04-05 14:48 | XMS REPORT | Clinical Summary ---
Author Author DAVID [facility] Address Unknown Phone Unavailable Care Team Providers Care Party Plan Sales Unit Advisor Name Role Phone Faby Romero PCP Allergies [...] ot Implanted Type Area Manufactur er 12/10/2019 [id number] / / [id number] Floseal Vhsd Full Strlprep 5ml Cement/Tez Spine Lumbar [id number] - [id number] ler/Adhesi SCI Implanted: Qty: 2 on 08/22/2018 by Benjamin Weston MD Results Not on fileafter 04/05/2019 Insurance Payer Benefit Subscriber ID Type Phone Address Plan / Group MEDICAID - MEDICAID [place]GD MEDICAID xxxxxxxxx Medica id [facility] Contracted MEDICAID MEDICAID xxxxxxxxx Medicaid [place] [id number] Advance Directives For more information, please contact: [phone] [place] [address] Date Inactivated Comments Code Status Date Activated 08/22/2018 6:17 PM Full Code 08/22/2018 5:30 AM This code status was determined by: Patient
[2020-04-05] MEDS ORDERED: LEVOFLOXACIN 750MG/D5W 150ML 150 ML IV STA (15:27)
[2020-04-05 15:53] VITALS: BP 136/68
--- NOTE | 2020-04-05 15:53 | NUR ---
Received patient from ER. Awake and alert, lying in bed. Respiration even and unlabored without SOB. Patient verbalized tolerable pain in ABD at this time. Call light in reach.
[2020-04-05] MEDS ORDERED: POTASSIUM CHLORIDE 20 MEQ TAB CR PO ONE (16:00)
[2020-04-05 16:10] VITALS: BP 136/68
--- NOTE | 2020-04-05 16:45 | History and Physical ---
HISTORY OF PRESENT ILLNESS: A 39-year-old female with past medical history positive for recurrent diverticulitis, history of obesity. The patient came to the emergency room complaining of fever. She also is having left flank pain. The patient was found to have diverticulitis, admitted to the hospital. REVIEW OF SYSTEMS: CARDIOVASCULAR: No chest pain or palpitation. RESPIRATORY: No shortness of breath. No cough. GASTROINTESTINAL: No nausea or vomiting. No diarrhea. She has left lower quadrant pain with left flank pain. No blood in the stools. No vomiting blood. GENITOURINARY: No frequency or dysuria. ALLERGIES: NOT ALLERGIC TO ANY MEDICATION. SOCIAL HISTORY: She does not smoke. She does not drink. PAST MEDICAL HISTORY: Positive for recurrent diverticulitis at least four over the last year. PHYSICAL EXAMINATION: HEART: Showed regular rhythm. Normal S1, S2 sound. LUNGS: Clear bilaterally. ABDOMEN: Soft, minimal tenderness on the left flank area. EXTREMITIES: Show no edema. LABORATORY DATA: Blood work, CT scans reports are still not in the computer yet, but I received a verbal report from the emergency room physician about the diagnosis of diverticulitis from the CT of the abdomen. FINAL IMPRESSION: 1. Acute diverticulitis. 2. Obesity. 3. Fever. PLAN OF TREATMENT: We are going to start Levaquin. Continue Flagyl. Also pain management, IV fluids. We are going to get a Gastroenterology consult with Dr. Madi Georges for Gastroenterology. Diet is going to be n.p.o. for now. Time spent around 45 minutes. MD KELLI Hudson/ASNDRA /[id number]
[2020-04-05] MEDS: METRONIDAZOLE 500MG/NS 100ML 100 ML IV SCH (18:28)
[2020-04-05] MEDS ORDERED: SODIUM CHLORIDE 0.9% 250ML 250 ML ONE (18:34)
--- NOTE | 2020-04-05 19:00 | NUR ---
Report given to shift commander. Respiration even and unlabored without SOB. Call light in reach.
--- NOTE | 2020-04-05 19:27 | NUR ---
Spoke with Dr. Silvino Georges about the consultation. States that he is going to see the patient tonight.
[2020-04-05 19:55] VITALS: BP 119/56
[2020-04-05] MEDS: HYDROMORPHONE 2MG/ML 2 MG/ML ML IV PRN (20:15)
[2020-04-05 21:00] VITALS: BP 119/56
[2020-04-06] VITALS (8 sets, daily range): BP systolic 99–119; BP diastolic 59–74
[2020-04-06] MEDS: METRONIDAZOLE 500MG/NS 100ML 100 ML IV SCH ×5 (00:04→23:44)
[2020-04-06] MEDS: ONDANSETRON HCL INJ 2MG/ML 2ML 2 MG/ML VIAL IV PRN ×5 (00:04→22:59)
[2020-04-06] MEDS: HYDROMORPHONE 2MG/ML 2 MG/ML ML IV PRN ×4 (01:38→22:59)
[2020-04-06 05:22] LABS: BASOPHILS # (AUTO) 0.1 (0.0-0.1); BASOPHILS % 0.6 % (0.0-1.0); EOSINOPHILS # (AUTO) 0.2 (0.0-0.4); EOSINOPHILS % 2.5 % (0.0-6.0); HEMATOCRIT 40.7 % (34.2-44.1); HEMOGLOBIN 12.9 g/dL (12.0-16.0); LYMPHOCYTES # (AUTO) 2.3 (1.0-3.2); LYMPHOCYTES % 26.1 % (18.0-39.1); MEAN CORPUSCULAR HEMOGLOBIN 27.8 pg (28-32); MEAN CORPUSCULAR HGB CONC 31.7 g/dL (31-35); MEAN CORPUSCULAR VOLUME 87.7 fL (81-99); MONOCYTES # (AUTO) 0.8 (0.2-0.8); MONOCYTES % 8.4 % (4.4-11.3); NEUTROPHILS # (AUTO) 5.6 (2.1-6.9); NEUTROPHILS % 62.1 % (38.7-80.0); PLATELET COUNT 334 x10e3/uL (140-360); RED BLOOD COUNT 4.64 x10e6/uL (3.6-5.1); RED CELL DISTRIBUTION WIDTH 13.4 % (11.7-14.4)
[2020-04-06 05:49] LABS: ALANINE AMINOTRANSFERASE 39 IU/L (0-55); ALBUMIN 3.1 g/dL (3.5-5.0); ALBUMIN/GLOBULIN RATIO 0.9 (0.8-2.0); ALKALINE PHOSPHATASE 80 IU/L (40-150); ANION GAP 10.6 mmol/L (8-16); BLOOD UREA NITROGEN 5 mg/dL (7-26); BUN/CREATININE RATIO 6 (6-25); CALCIUM 7.7 mg/dL (8.4-10.2); CARBON DIOXIDE 25 mmol/L (22-29); CHLORIDE 106 mmol/L (98-107); CREATININE, SERUM 0.77 mg/dL (0.57-1.11); EST GLOMERULAR FILTRATION RATE > 60 ML/MIN (60-); GLUCOSE 93 mg/dL (74-118); POTASSIUM 3.6 mmol/L (3.5-5.1); SODIUM 138 mmol/L (136-145)
--- NOTE | 2020-04-06 07:00 | NUR ---
RCD PT AT BED PT IS ALERT AND ORIENTED PT RESTING ON BED NO SIGNS OF ANY DISTRESS NOTED IV PATENT BY SALINE FLUSH BED LOW AND LOCKED CALL LIGHT IN REACH
--- NOTE | 2020-04-06 12:50 | NUR ---
PT C/O DIARRHEA PAGED AND NOTIFIED DR RILEY GOT NEW ORDERS
[2020-04-06] MEDS: LOPERAMIDE HCL 2 MG CAP PO PRN ×2 (13:34→21:36)
[2020-04-06] MEDS ORDERED: ACETAMINOPHEN 325 MG TAB PO PRN (14:30)
[2020-04-06] MEDS: DEXTROSE 5%/0.9% SOD CHL 1,000 ML IV SCH (15:15)
[2020-04-06] MEDS: LEVOFLOXACIN 500MG/D5W 100ML 100 ML IV SCH (15:57)
--- NOTE | 2020-04-06 16:00 | Progress Note ---
DATE: Internal Medicine Progress Note SUBJECTIVE: The patient is complaining of left side abdominal pain and also diarrhea. OBJECTIVE: VITAL SIGNS: Blood pressure 107/66, temperature 96.5 degrees Fahrenheit, heart rate 63 per minute, respiratory rate 18 per minute, and oxygen saturation 96%. ABDOMEN: Shows some tenderness on the left flank. LABORATORY DATA: On the BMP; sodium 138, potassium 3.6, chloride 106, CO2 25, BUN 5, creatinine 0.77, glucose 93, and calcium 7.7. Total bilirubin 0.3, AST 31, ALT 39, and alkaline phosphatase 80. Troponin 0.001. Total protein 6.4, albumin 3.1, and globulin 3.3. Lipase is 12. On the CBC; white blood count is normal at 8.94, hemoglobin 12.9, hematocrit 40.7, and platelet count 334,000. PT 13.5 and INR 0.97. C. difficile pending. Coronavirus is pending. Urinalysis shows some leukocytes. Urine culture has been sent and the report is pending. FINAL IMPRESSION: 1. Acute diverticulitis. 2. Probably urinary tract infection. 3. Diverticulitis, recurrent. She had 5 episodes over the last 2 years. We are going to also beside the consult with Dr. Madi Georges for Gastroenterology, we are going to also get a consult with the surgeon for a possibility of partial colectomy due to the recurrent diverticulitis that the patient is having. PLAN OF TREATMENT: She will continue with Levaquin 500 mg IV daily and metronidazole 500 g IV q.6 hours. Continue Tylenol 325 mg q.4 hours as needed for mild pain or fever, Dilaudid 2 mg IV q.6 hours as needed for severe pain, and loperamide 2 mg as needed for diarrhea. Stool for C. difficile being sent. Continue Zofran 4 mg IV q.4 hours as needed for nausea and vomiting. MD KELLI Hudson/SANDRA /[id number]
--- NOTE | 2020-04-06 18:41 | NUR ---
PT RESTING ON BED BED SIDE REPORT GIVEN TO ONCOMING NURSE
--- NOTE | 2020-04-06 19:25 | NUR ---
Patient received sitting up in bed. AAO x 4. Patient had no complaints of pain. Respirations even and non-labored. IVF infusing at 100 cc/hr. Fall precautions implemented. Patient instructed to call for assistance when needed. Call light within reach
[2020-04-07] VITALS (8 sets, daily range): BP systolic 114–141; BP diastolic 60–89
--- NOTE | 2020-04-07 00:09 | NUR ---
Dr. Silvino Georges here to see patient. New order received for Lomotil PO now and Lomotil PO BID.
[2020-04-07] MEDS ORDERED: DIPHENOXYLATE/ATROPINE TAB PO ONE (00:15)
[2020-04-07] MEDS: DEXTROSE 5%/0.9% SOD CHL 1,000 ML IV SCH ×2 (01:55→11:58)
--- NOTE | 2020-04-07 01:56 | NUR ---
New order received from Dr. Silvino Georges to advance diet from Clear liquid to Full liquid.
[2020-04-07] MEDS ORDERED: DICYCLOMINE HCL 20 MG TAB PO STA (02:20)
[2020-04-07] MEDS: ONDANSETRON HCL INJ 2MG/ML 2ML 2 MG/ML VIAL IV PRN ×3 (04:40→23:58)
[2020-04-07] MEDS: METRONIDAZOLE 500MG/NS 100ML 100 ML IV SCH ×3 (06:03→19:16)
[2020-04-07] MEDS: HYDROMORPHONE 2MG/ML 2 MG/ML ML IV PRN ×3 (06:25→19:00)
--- NOTE | 2020-04-07 07:00 | NUR ---
Walking rounds done. Patient resting comfortably. BSSR given to oncoming nurse.
[2020-04-07] MEDS: DICYCLOMINE HCL 20 MG TAB PO SCH ×4 (11:58→21:22)
[2020-04-07] MEDS: DIPHENOXYLATE/ATROPINE TAB PO SCH ×2 (11:58→18:17)
--- NOTE | 2020-04-07 12:15 | Progress Note ---
DATE: Internal Medicine Progress Note SUBJECTIVE: The patient with less abdominal pain. OBJECTIVE: VITAL SIGNS: Blood pressure 114/60, temperature 97.8, heart rate 61 per minute, respiratory rate 18 per minute, and O2 saturation 97%. ABDOMEN: Soft. She had left flank pain. LABORATORY DATA: On the blood work, we have CBC, white blood count is normal at 8.94, hemoglobin 12.9, hematocrit 40.7, and platelet count 334,000. On the BMP, sodium of 138, potassium 3.6, chloride 106, CO2 of 25, BUN 5, creatinine 0.77, glucose 93, and calcium 7.7. Total bilirubin 0.3, AST 31, ALT 39, alkaline phosphatase 80, total protein 6.4, albumin 3.1, globulin 3.3, and lipase 12. Atypical p-ANCA is pending. Clostridium difficile toxin negative. Coronavirus negative, not detected. We are waiting for IgG, IgA antibodies. FINAL IMPRESSION: 1. Acute recurrent diverticulitis. 2. Chronic diarrhea. 3. . PLAN OF TREATMENT: Continue liquid diet. Continue D5 normal saline at 100 mL an hour, Levaquin 500 mg IV daily, metronidazole 500 g IV q.6 hours Tylenol 325 mg q.4 hours as needed for mild pain, Bentyl 20 mg q.6 hours, Lomotil 1 tablet twice a day, Dilaudid 2 mg IV q.6 hours as needed, and Zofran 4 mg IV q.4 hours as needed. The patient might need partial colectomy in the near future because the patient had recurrent cases of diverticulitis at least 5 over the last two years. Dr. Knox has been consulted on the case because of that. For now, I am going to continue IV antibiotics. MD KELLI Hudson/SANDRA /[id number]
[2020-04-07 14:09] LABS: WBC,FECAL (FECAL LACTOFERRIN) POSITIVE (NEGATIVE)
--- NOTE | 2020-04-07 17:28 | NUR ---
Nutrition Screen Note RD Recommendation for Physician: - As feasible, advance as tolerated to Low Fat, GI Soft diet Plan of Care: RD following, monitoring for tolerance and adequacy - diet education provided 04/07 Nutrition reason for involvement: MD Consult- diet education: low fat diet Primary Diagnose(s): diverticulitis PMH: recurrent diverticulitis, obesity Ht: 64 in Wt:l 228 b BMI: 39.1 kg/m2 IBW: [address] Assessment: (04/07) 39 YOF admitted for diverticulitis, seen today per MD consult for diet education. Pt receptive to diet education at time of visit. Pt educated on restricted fiber diet for diverticulitis emphasizing foods to avoid and low fat diet for hepatic steatosis emphasizing foods to avoid. Handouts provided, all questions and concerns addressed at time of visit. Chart reviewed. Labs and meds reviewed. Will continue to monitor. Current Diet: full liquids Malnutrition Evaluation (04/07/20) The patient does not meet criteria for a specified degree of malnutrition at this time. Will re-evaluate at follow-up as appropriate. Diet Education Needs Assessment: Diet education indicated, pt receptive- education provided 04/07. Learner(s): pt, pt's significant other Barriers: none Cultural/Language Modifications: none Readiness: ready Method: handouts, discussion Topics: low fiber diet- diverticulitis, low fat diet- hepatic steatosis Understanding/Compliance: good Diet tolerance: tolerating po Nutrition Care Level: low Signed: Lucina Medrano RD, LD, [facility]
[2020-04-07] MEDS: LEVOFLOXACIN 500MG/D5W 100ML 100 ML IV SCH (18:17)
[2020-04-07 20:43] LABS: BASOPHILS # (AUTO) 0.1 (0.0-0.1); BASOPHILS % 0.5 % (0.0-1.0); EOSINOPHILS # (AUTO) 0.1 (0.0-0.4); EOSINOPHILS % 1.1 % (0.0-6.0); HEMATOCRIT 41.7 % (34.2-44.1); HEMOGLOBIN 13.4 g/dL (12.0-16.0); LYMPHOCYTES # (AUTO) 2.8 (1.0-3.2); LYMPHOCYTES % 25.3 % (18.0-39.1); MEAN CORPUSCULAR HEMOGLOBIN 28.1 pg (28-32); MEAN CORPUSCULAR HGB CONC 32.1 g/dL (31-35); MEAN CORPUSCULAR VOLUME 87.4 fL (81-99); MONOCYTES # (AUTO) 0.9 (0.2-0.8); MONOCYTES % 8.1 % (4.4-11.3); NEUTROPHILS # (AUTO) 7.1 (2.1-6.9); NEUTROPHILS % 64.3 % (38.7-80.0); PLATELET COUNT 381 x10e3/uL (140-360); RED BLOOD COUNT 4.77 x10e6/uL (3.6-5.1); RED CELL DISTRIBUTION WIDTH 13.4 % (11.7-14.4)
[2020-04-08] VITALS (9 sets, daily range): BP systolic 107–162; BP diastolic 60–93
[2020-04-08] MEDS: METRONIDAZOLE 500MG/NS 100ML 100 ML IV SCH ×5 (00:30→23:49)
[2020-04-08] MEDS: DEXTROSE 5%/0.9% SOD CHL 1,000 ML IV SCH ×3 (03:10→18:46)
[2020-04-08] MEDS: HYDROMORPHONE 2MG/ML 2 MG/ML ML IV PRN ×3 (03:15→19:02)
[2020-04-08] MEDS ORDERED: DIATRIZOATE MEGL/DIATRIZOA SOD 30 ML BTL PO ONE (05:41)
[2020-04-08] MEDS: ONDANSETRON HCL INJ 2MG/ML 2ML 2 MG/ML VIAL IV PRN (05:48)
[2020-04-08 05:53] LABS: ALANINE AMINOTRANSFERASE 34 IU/L (0-55); ALBUMIN 3.2 g/dL (3.5-5.0); ALKALINE PHOSPHATASE 81 IU/L (40-150); ANION GAP 11.5 mmol/L (8-16); BLOOD UREA NITROGEN < 5 mg/dL (7-26); BUN/CREATININE RATIO 7 (6-25); CALCIUM 8.4 mg/dL (8.4-10.2); CARBON DIOXIDE 23 mmol/L (22-29); CHLORIDE 107 mmol/L (98-107); CREATININE, SERUM 0.72 mg/dL (0.57-1.11); EST GLOMERULAR FILTRATION RATE > 60 ML/MIN (60-); GLUCOSE 123 mg/dL (74-118); POTASSIUM 3.5 mmol/L (3.5-5.1); SODIUM 138 mmol/L (136-145)
[2020-04-08] MEDS ORDERED: SODIUM CHLORIDE 0.9% 50ML 50 ML ONE (06:15)
[2020-04-08] MEDS ORDERED: IOPAMIDOL 370 MG/ML 200 ML INFUS..BTL INJ ONE (06:16)
--- NOTE | 2020-04-08 06:54 | NUR ---
Patient resting comfortably. No acute distress noted. Shift report given to oncoming nurse regarding patient's status.
--- NOTE | 2020-04-08 07:09 | Diagnostic Imaging Report ---
EXAM: CT Abdomen and Pelvis WITH contrast INDICATION: Abdominal pain COMPARISON: 04/05/2020 TECHNIQUE: Abdomen and pelvis were scanned utilizing a multidetector helical scanner from the lung base to the pubic symphysis after administration of IV contrast. Coronal and sagittal reformations were obtained. Routine protocol was performed. Scan was performed when during portal venous phase. IV CONTRAST: 100 mL of Isovue 370 ORAL CONTRAST: Water COMPLICATIONS: None RADIATION DOSE: Total DLP: 804 mGy*cm Estimated effective dose: (DLP x 0.015 x size factor) mSv CTDIvol has been reviewed. It is below the limits set by the Radiation Protocol Committee (RPC). Dose modulation, iterative reconstruction, and/or weight based adjustment of the mA/kV was utilized to reduce the radiation dose to as low as reasonably achievable. FINDINGS: LINES and TUBES: None. LOWER THORAX: Unremarkable HEPATOBILIARY: Mild fatty infiltration of the liver. No focal hepatic lesions. No biliary ductal dilation. GALLBLADDER: Surgically absent. SPLEEN: No splenomegaly. PANCREAS: No focal masses or ductal dilatation. ADRENALS: No adrenal nodules. KIDNEYS/URETERS: Kidneys enhance symmetrically. No hydronephrosis. No cystic or solid mass lesions. No stones. GI TRACT: No abnormal distention, wall thickening, or evidence of bowel obstruction. Mild colonic diverticulosis. Unchanged subtle fat stranding about the distal descending colon. Appendix is normal. PELVIC ORGANS/BLADDER: The bladder is unremarkable. An IUD is again noted. LYMPH NODES: No lymphadenopathy. VESSELS: Unremarkable. PERITONEUM / RETROPERITONEUM: No free air or fluid. BONES: Unremarkable. SOFT TISSUES: Unremarkable. IMPRESSION: No interval changes when compared to the previous CT scan from 3 days ago. Unchanged mild diverticulitis of the distal descending colon. No abscess or other complication. Signed by: Ray Serrano MD on 04/08/2020 7:06 AM
[2020-04-08] MEDS: DIPHENOXYLATE/ATROPINE TAB PO SCH ×2 (08:26→18:46)
[2020-04-08] MEDS: DICYCLOMINE HCL 20 MG TAB PO SCH ×4 (08:26→21:24)
[2020-04-08] MEDS: ONDANSETRON HCL 4 MG ORAL DISINTEGRATING TAB PO PRN ×3 (12:56→23:48)
[2020-04-08] MEDS: LEVOFLOXACIN 500MG/D5W 100ML 100 ML IV SCH (16:02)
[2020-04-08] MEDS: AMLODIPINE BESYLATE 5 MG TAB PO SCH (16:02)
--- NOTE | 2020-04-08 17:41 | NUR ---
Patient complained of chest pain, called Dr. Bee's answering service at [phone], spoke to Willy.
--- NOTE | 2020-04-08 18:04 | Progress Note ---
DATE: Internal Medicine Progress Note SUBJECTIVE: The patient is still complaining of abdominal pain. OBJECTIVE: VITAL SIGNS: Blood pressure 146/79, temperature 97.9, heart rate 63 per minute, respiratory rate 18 per minute, O2 saturation 99%. ABDOMEN: Soft. Tenderness in left flank. EXTREMITIES: Show no edema. LABORATORY DATA: On the CBC; white blood count 11.08, hemoglobin 13.4, hematocrit 41.7, platelet count 381,000. On the BMP; sodium 138, potassium 3.5, chloride 107, CO2 23, BUN 5, creatinine 0.72, GFR is 60, glucose 123, calcium 8.4, total bilirubin 0.3, AST 26, ALT 34, alkaline phosphatase 81, total protein 6.3, albumin 3.2, globin 3.1, lipase is 12. Atypical p-ANCA test is still pending. Stool lactoferrin is positive. C difficile toxin is negative. Turner virus PCR in completely negative. Urine shows some trace leukocytes. Urine culture . Stool for ova and parasites and cultures are still pending. FINAL IMPRESSION: 1. Severe recurrent left colon diverticulitis. 2. Obesity. 3. Fever. 4. Hypertension, which is uncontrolled. PLAN OF TREATMENT: We are going to continue with D5 half-normal saline at 100 mL an hour, Levaquin 500 mg IV daily, metronidazole 500 mg IV q.6 hours, Tylenol 325 mg q.4 hours as needed for pain or fever, Bentyl 20 mg q.6 hours, Lomotil 1 tablet twice a day, Dilaudid 2 mg IV q.6 hours as needed, Zofran 4 mg p.o. q.4 hours as needed. We are going to start the patient on Norvasc 5 mg daily because of the hypertension that she has had at times. The patient might need an elective partial colectomy in the future due to the recurrent episodes of diverticulitis over the last two years. Time spent around 40 minutes. MD KELLI Hudson/SANDRA /[id number]
--- NOTE | 2020-04-08 19:00 | NUR ---
BEDSIDE SHIFT REPORT RECEIVED FROM DAY RN. PT IS ALERT AND ORIENTED X3. RESPIRATIONS ARE REGULAR AND UNLABORED. PT REPORT POOR PO INTAKE. PT ON CLEAR LIQUID DIET. 20 G PIV IN RT AC. DENIES CHEST PAIN.VOIDING WITHOUT DIFFICULTY. CALL LIGHT WITHIN REACH. BED IN LOW POSITION.
[2020-04-09] VITALS (8 sets, daily range): BP systolic 127–159; BP diastolic 68–93
[2020-04-09] MEDS: HYDROMORPHONE 2MG/ML 2 MG/ML ML IV PRN ×2 (01:28→09:44)
[2020-04-09] MEDS ORDERED: FAMCICLOVIR 500 MG TAB PO STA (02:09)
[2020-04-09] MEDS ORDERED: PANTOPRAZOLE 40 MG 10ML VIAL IV STA (02:24)
--- NOTE | 2020-04-09 02:30 | NUR ---
dR MENDEZ HERE TO SEE PT. NEW ORDERS RECEIVED. RASH NOTED ON SKIN FOLD OF ABDOMEN. DR MENDEZ THINK MIGHT BE SHINGLES. FAMVIR NOT GIVEN UNABLE TO GET TONIGHT WILL OBTAIN MED THIS AM. NURSING MIDLEVEL PROVIDER AWARE.PT PLACED ON ISOLATION.
[2020-04-09] MEDS: DEXTROSE 5%/0.9% SOD CHL 1,000 ML IV SCH ×2 (05:17→14:41)
[2020-04-09] MEDS: METRONIDAZOLE 500MG/NS 100ML 100 ML IV SCH ×3 (05:17→17:05)
[2020-04-09] MEDS: TRAMADOL HCL 50 MG TAB PO SCH ×3 (05:54→16:24)
--- NOTE | 2020-04-09 07:00 | NUR ---
RECEIVED PATIENT AWAKE RESTING IN BED NO S/S OF DISTRESS. BED LOW, WHEELS LOCKED, SIDE RAILS X2. CALL LIGHT IN REACH WILL CONTINUE TO MONITOR PATIENT.
[2020-04-09 09:09] LABS: BASOPHILS % 0.5 % (0.0-1.0); EOSINOPHILS # (AUTO) 0.2 (0.0-0.4); HEMATOCRIT 41.3 % (34.2-44.1); MEAN CORPUSCULAR HGB CONC 31.5 g/dL (31-35); MEAN CORPUSCULAR VOLUME 88.8 fL (81-99); MONOCYTES # (AUTO) 0.8 (0.2-0.8); MONOCYTES % 9.4 % (4.4-11.3); NEUTROPHILS # (AUTO) 5.4 (2.1-6.9); NEUTROPHILS % 63.7 % (38.7-80.0); PLATELET COUNT 311 x10e3/uL (140-360); RED BLOOD COUNT 4.65 x10e6/uL (3.6-5.1); RED CELL DISTRIBUTION WIDTH 13.5 % (11.7-14.4)
[2020-04-09] MEDS: DICYCLOMINE HCL 20 MG TAB PO SCH ×4 (09:36→21:00)
[2020-04-09] MEDS: AMLODIPINE BESYLATE 5 MG TAB PO SCH (09:36)
[2020-04-09] MEDS: DIPHENOXYLATE/ATROPINE TAB PO SCH ×2 (09:36→16:37)
[2020-04-09] MEDS: PANTOPRAZOLE 40 MG 10ML VIAL IV SCH ×2 (09:36→21:00)
[2020-04-09] MEDS: FAMCICLOVIR 500 MG TAB PO SCH ×3 (09:36→21:00)
[2020-04-09] MEDS: ONDANSETRON HCL 4 MG ORAL DISINTEGRATING TAB PO PRN ×3 (12:21→20:37)
[2020-04-09] MEDS: LEVOFLOXACIN 500MG/D5W 100ML 100 ML IV SCH (15:10)
[2020-04-09] MEDS: METOCLOPRAMIDE HCL 10 MG/2ML VIAL IV PRN ×2 (16:37→23:00)
--- NOTE | 2020-04-09 18:38 | Progress Note ---
DATE: Internal Medicine Progress Note. SUBJECTIVE: The patient is complaining of nausea and vomiting not relieved by Zofran. She does have a rash on the left side of the chest. PHYSICAL EXAMINATION: VITAL SIGNS: Blood pressure 145/68, temperature 38.2, heart rate 70 per minute, respiratory rate 18 per minute, O2 saturation 99%. HEART: Regular rhythm. Normal S1, S2 sound. LUNGS: Clear bilaterally. ABDOMEN: Soft. SKIN: On the skin examination, she has vesiculopapular rash on the left side of the chest. LABORATORY DATA: On CBC, white blood count 8.49, hemoglobin 13.0, hematocrit 41.3, platelet count 311,000. On the BMP; sodium 138, potassium 3.5, chloride 107, CO2, 23, BUN 5, creatinine 0.72, glucose 123, calcium 8.4, total bilirubin 0.3, AST 26, ALT 34, alkaline phosphatase 81, albumin 3.2, globulin 3.1, lipase is 12. Serology; C difficile stool test has been negative. Turner virus test negative. IMPRESSION: 1. Diverticulitis. 2. Herpes zoster. 3. Vomiting. 4. Obesity. 5. Hypertension. PLAN OF TREATMENT: We are going to continue contact isolation for possible herpes zoster. Continue D5 normal saline at 100 mL an hour, Levaquin 500 mg IV daily, metronidazole 500 g IV q.6 hours, which we are going to decrease to 250 mg IV q.6 hours due to the vomiting, continue Tylenol 325 mg q.4 hours as needed for pain or fever, Norvasc 5 mg daily, Bentyl 20 mg q.6 hours, Lomotil 1 tablet twice a day, famciclovir 500 mg now and then 500 mg three times a day. We are going to decrease Dilaudid 1 mg IV q.6 hours as needed. We are going to continue Protonix 40 mg IV twice a day, tramadol 50 mg q.6 hours. We are going to start the patient on Compazine 10 mg q.6 hours as needed for vomiting. Note: Case has been discussed with the nurse and the patient. Time spent 35 minutes. MD KELLI Hudson/SANDRA /[id number]
--- NOTE | 2020-04-09 19:54 | Consultation ---
DATE OF CONSULTATION: Cardiac consultation. REASON FOR THE CONSULTATION: Chest pain. HISTORY OF PRESENT ILLNESS: This is a delightful 39-year-old lady admitted to this institution on the April 05, 2020, with a left-sided abdominal pain which is chronic, recurrent, as well as diarrhea. The patient diagnosed with diverticulitis. There is more than one episode in the last few weeks. She complained of nausea, vomiting, chills, abdominal pain, melena and bright red blood per rectum plus chronic diarrhea. The patient was started on treatment yesterday. She had chest pain, vague in characteristic, worse with deep inspiration. Cardiac consult is obtained. EKG done showed no acute changes. Today, the pain seems to be subsided. The patient doing well. Her main problem is left-sided abdominal pain and she has continued to have nausea, vomiting. The patient is very smart. She keep her leg on to move. REVIEW OF SYSTEMS: GENERAL: Fever and chills. HEENT: No vision problem. No hearing problem. PULMONARY: As per acute illness. CARDIAC: As per acute illness. GI: As per acute illness. : No hematuria. No dysuria. MUSCULOSKELETAL: No aches, no pain. NEUROLOGY: No seizure activity. No localized weakness. HEMATOLOGY: No easy bruising or bleeding. SOCIAL HISTORY: She is . 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 She is nonsmoker and non-alcohol drinker. PAST MEDICAL HISTORY: 1. Cholecystectomy. 2. C-sections. 3. Obesity. 4. Recurrent diverticulitis. FAMILY HISTORY: Father and mother in good health. Her siblings, none with coronary artery disease. She does have an aunt with sudden cardiac at age 50. She does have three healthy children, the youngest is 2 years old. CURRENT MEDICATIONS: Include: 1. Flagyl. 2. Levaquin. 3. Hydromorphone. 4. Zofran. 5. Amlodipine 5 mg a day. 6. Protonix. 7. Dicyclomine. ALLERGIES: NONE. PHYSICAL EXAMINATION: VITAL SIGNS: Height of 5 feet 4 inches, weight of 228 pounds, blood pressure 130/70, heart rate of 70, respiratory rate of 18. HEENT: Pupils are equal and reactive. NECK: No elevation of jugular venous pulsation. CHEST: Clear to auscultation and percussion. HEART: PMI 5th left intercostal space. Normal first and second heart sounds. ABDOMEN: Tender abdomen, more pronounced on the left side of the abdomen. EXTREMITIES: No signs, no clubbing, no edema. No gross signs of deep venous thrombosis. NEUROLOGIC: Awake, alert, and oriented. No motor or sensory deficits. LAB DATA: Electrolytes, most recent one are within normal. White blood cell count of 8.5, hemoglobin 13, hematocrit 41%. EKG showing normal sinus rhythm. The liver function tests are normal. CT abdomen showing evidence of diverticulitis. IMPRESSION AND PLAN: 1. Diverticulitis. 2. Obesity. 3. Chest pain after admission. RECOMMENDATIONS: Differential diagnosis is wide. It seems to be atypical chest pain, doubt to be CAD. Another remote probability is pulmonary embolus, but the patient kept her leg on activity and she is moving them to prevent that and this is reinforced. Cardiac aleman, we would recommend venous Doppler study of the lower extremity, CT chest, PE protocol, and we will get an echocardiogram. We will recommend observation for the time being. We will follow the patient's progression. MD FRANKIE Walker/TARAL /[id number]
--- NOTE | 2020-04-09 20:09 | NUR ---
RECEIVED PATIENT IN BEDSIDE AOX3 C/O N AND VOMITING .PT HAS GONE TO GET CT DONE AND BACK .CONTINUE TO MONITOR
--- NOTE | 2020-04-09 20:22 | Diagnostic Imaging Report ---
EXAM: CT Chest WITH contrast 04/09/2020 7:51 PM INDICATION: Shortness of breath COMPARISON: None TECHNIQUE: Chest was scanned utilizing a multidetector helical scanner from the lung apex through the level of the adrenal glands without administration of IV contrast. Coronal and sagittal reformations were obtained. Pulmonary embolism protocol was performed. IV CONTRAST: 100 mL of Omnipaque 300 COMPLICATIONS: None RADIATION DOSE: Total DLP: 804 mGy*cm Estimated effective dose: (DLP x 0.014 x size factor) mSv CTDIvol has been reviewed. It is below the limits set by the Radiation Protocol Committee (RPC). Dose modulation, iterative reconstruction, and/or weight based adjustment of the mA/kV was utilized to reduce the radiation dose to as low as reasonably achievable. FINDINGS: Significantly limited study due to poor timing of the contrast bolus. The majority of the contrast is within the proximal aorta and left heart. LINES/ TUBES: None. LUNGS AND AIRWAYS: The lungs are unremarkable. Airways are normal. PLEURA: The pleural spaces are clear. HEART AND MEDIASTINUM: The thyroid gland is normal. No mediastinal, hilar or axillary lymphadenopathy. The heart is normal in size. There is no pericardial effusion. The pulmonary arteries are poorly opacified. No large central pulmonary embolus is identified. The distal branches cannot be adequately evaluated. UPPER ABDOMEN: Fatty infiltration of the liver. Gallbladder is surgically absent. Small posterior gastric diverticulum. BONES: The visualized bony thorax is within normal limits. SOFT TISSUES: Unremarkable. IMPRESSION: 1. Suboptimal study with poor opacification of the pulmonary arteries. No central pulmonary embolus is identified. The distal pulmonary artery branches are inadequately evaluated. 2. The lungs are clear. Signed by: Ray Serrano MD on 04/09/2020 8:19 PM
[2020-04-09] MEDS ORDERED: IOPAMIDOL 370 MG/ML 200 ML INFUS..BTL INJ ONE (20:27)
[2020-04-09] MEDS ORDERED: SODIUM CHLORIDE 0.9% 50ML 50 ML ONE (20:27)
[2020-04-10] VITALS (8 sets, daily range): BP systolic 115–152; BP diastolic 64–75
[2020-04-10] MEDS: DEXTROSE 5%/0.9% SOD CHL 1,000 ML IV SCH ×3 (00:24→22:39)
[2020-04-10] MEDS: TRAMADOL HCL 50 MG TAB PO SCH ×4 (00:24→16:58)
[2020-04-10] MEDS: METRONIDAZOLE 500MG/NS 100ML 100 ML IV SCH ×4 (00:24→16:58)
[2020-04-10] MEDS: HYDROMORPHONE 2MG/ML 2 MG/ML ML IV PRN ×3 (01:00→20:56)
[2020-04-10] MEDS ORDERED: METOCLOPRAMIDE HCL 10 MG/2ML VIAL IV ONE (01:45)
[2020-04-10] MEDS: ONDANSETRON HCL INJ 2MG/ML 2ML 2 MG/ML VIAL IV PRN ×2 (02:06→20:56)
[2020-04-10 05:36] LABS: BASOPHILS % 0.4 % (0.0-1.0); EOSINOPHILS # (AUTO) 0.1 (0.0-0.4); EOSINOPHILS % 0.6 % (0.0-6.0); HEMATOCRIT 40.9 % (34.2-44.1); HEMOGLOBIN 13.2 g/dL (12.0-16.0); LYMPHOCYTES # (AUTO) 2.6 (1.0-3.2); LYMPHOCYTES % 23.3 % (18.0-39.1); MEAN CORPUSCULAR HEMOGLOBIN 28.1 pg (28-32); MEAN CORPUSCULAR HGB CONC 32.3 g/dL (31-35); MEAN CORPUSCULAR VOLUME 87.2 fL (81-99); MONOCYTES # (AUTO) 0.9 (0.2-0.8); MONOCYTES % 8.1 % (4.4-11.3); NEUTROPHILS # (AUTO) 7.6 (2.1-6.9); NEUTROPHILS % 67.2 % (38.7-80.0); PLATELET COUNT 329 x10e3/uL (140-360); RED BLOOD COUNT 4.69 x10e6/uL (3.6-5.1); RED CELL DISTRIBUTION WIDTH 13.4 % (11.7-14.4)
[2020-04-10 06:09] LABS: ALANINE AMINOTRANSFERASE 22 IU/L (0-55); ALBUMIN/GLOBULIN RATIO 0.9 (0.8-2.0); ALKALINE PHOSPHATASE 78 IU/L (40-150); BLOOD UREA NITROGEN < 5 mg/dL (7-26); CALCIUM 8.6 mg/dL (8.4-10.2); CARBON DIOXIDE 23 mmol/L (22-29); CHLORIDE 104 mmol/L (98-107); CHOL/HDL RATIO 2.5 (3.0-3.6); CHOLESTEROL 98 MD/DL (0-199); CREATININE, SERUM 0.74 mg/dL (0.57-1.11); EST GLOMERULAR FILTRATION RATE > 60 ML/MIN (60-); GLUCOSE 118 mg/dL (74-118); HDL CHOLESTEROL 40 MG/DL (40-60); LDL CHOLESTEROL 49 MG/DL (60-130); SODIUM 138 mmol/L (136-145); TRIGLYCERIDES 43 MG/DL (0-149)
--- NOTE | 2020-04-10 06:14 | NUR ---
DURING THE NIGHT PTC/O PAIN ,N&V .DR MENDEZ HAS SEEN THE PT .GIVEN ORDERED PAIN AND NAUSEA MEDICATION .PT RESTING CONTINUE TO MONITOR
[2020-04-10 06:16] LABS: BUN/CREATININE RATIO 7 (6-25)
[2020-04-10 06:34] LABS: THYROID STIMULATING HORMONE 4.627 uIU/mL (0.350-4.940)
--- NOTE | 2020-04-10 06:59 | NUR ---
BEDSIDE REPORT GIVEN TO THE ONCOMING NURSE.
--- NOTE | 2020-04-10 07:00 | NUR ---
RECEIVED PATIENT AWAKE RESTING IN BED NO S/S OF DISTRESS. BED LOW, WHEELS LOCKED, SIDE RAILS X2. CALL LIGHT IN REACH WILL CONTINUE TO MONITOR PATIENT.
[2020-04-10] MEDS: AMLODIPINE BESYLATE 5 MG TAB PO SCH (08:13)
[2020-04-10] MEDS: DIPHENOXYLATE/ATROPINE TAB PO SCH ×2 (08:13→16:58)
[2020-04-10] MEDS: FAMCICLOVIR 500 MG TAB PO SCH ×3 (08:13→21:00)
[2020-04-10] MEDS: METOCLOPRAMIDE HCL 10 MG/2ML VIAL IV SCH ×4 (08:13→20:56)
[2020-04-10] MEDS: DICYCLOMINE HCL 20 MG TAB PO SCH ×4 (08:13→20:56)
[2020-04-10] MEDS: PANTOPRAZOLE 40 MG 10ML VIAL IV SCH ×2 (08:13→20:56)
[2020-04-10] MEDS ORDERED: POTASSIUM CHLORIDE 20 MEQ TAB CR PO NR (12:13)
[2020-04-10] MEDS ORDERED: CEFTRIAXONE SOD 2 GM/NS 100 ML 100 ML IV SCH (12:15)
--- NOTE | 2020-04-10 13:36 | Progress Note ---
DATE: Internal Medicine Progress Note PHYSICAL EXAMINATION: ABDOMEN: Soft, less tender on the left flank. VITAL SIGNS: Blood pressure is 128/78, temperature 97.7, heart rate 64 per minute, respiratory rate 16 per minute, and oxygen saturation 97%. LABORATORY DATA: On the CBC; white blood count is 11,330, hemoglobin 13.2, hematocrit 40.9, and platelet count 329,000. On the BMP; sodium 138, potassium 3.0, chloride 104, CO2 23, BUN 5, creatinine 0.74, glucose 118, and calcium 8.6. Total bilirubin 0.3, AST 16, ALT 22, and alkaline phosphatase 78. Total protein 6.3, albumin 3.0, and globulin 3.3. Triglycerides 43, cholesterol 98, LDL cholesterol 49. TSH 4.627 . Atypical ANCA pending. Stool lactoferrin positive. C. difficile toxin negative. Coronavirus not detected. CT of the chest showed lungs are clear. CT of the abdomen, unchanged diverticulosis of distal descending colon. No abscess or other complication. FINAL IMPRESSION: 1. Acute diverticulitis. 2. Obesity. 3. Fever. 4. Hypertension. 5. Herpes zoster on the chest. PLAN OF TREATMENT: Continue with liquid diet. Continue D5 normal saline at 100 mL an hour. Levaquin is going to be changed to Rocephin 2 g IV daily because she had a reaction to Levaquin. Continue metronidazole 500 g IV q.6 hours. Continue Tylenol 325 mg q.4 hours as needed for pain or fever, amlodipine 5 mg daily, Bentyl 20 mg q.6 hours, Lomotil one tablet twice a day, and Famvir 500 mg 3 times a day. Contact isolation for herpes zoster. Continue Dilaudid 1 mg IV q.6 hours as needed for severe pain. Continue metoclopramide 10 mg before meals and at bedtime. Continue Zofran 4 mg IV q.4 hours as needed for nausea and vomiting and Protonix 40 mg IV twice a day. Continue tramadol 50 mg q.6 hours. We are going to repeat a CBC tomorrow. Tentative discharge between Saturday and Saturday the patient is feeling better. MD KELLI Hudson/SANDRA /[id number]
[2020-04-10 18:42] LABS: ANION GAP 14.4 mmol/L (8-16); BLOOD UREA NITROGEN < 5 mg/dL (7-26); CALCIUM 8.4 mg/dL (8.4-10.2); CARBON DIOXIDE 23 mmol/L (22-29); CHLORIDE 104 mmol/L (98-107); CREATININE, SERUM 0.73 mg/dL (0.57-1.11); EST GLOMERULAR FILTRATION RATE > 60 ML/MIN (60-); GLUCOSE 130 mg/dL (74-118); POTASSIUM 3.4 mmol/L (3.5-5.1); SODIUM 138 mmol/L (136-145)
[2020-04-10 18:47] LABS: BUN/CREATININE RATIO 7 (6-25)
--- NOTE | 2020-04-10 20:04 | NUR ---
RECEIVED PATIENT IN BEDSIDE AOX3 C/O OF ABD PAIN.CONTINUE TO MONITOR
--- NOTE | 2020-04-10 21:48 | Progress Note ---
DATE: 04/10/2020 COMPLAINT: The patient complaining of left-sided abdominal pain. There is nausea and there is vomiting. There is no chest pain today. There is no shortness of breath today. REVIEW OF SYSTEMS: Unremarkable with the exception of the above. CURRENT MEDICATIONS: IV fluids, Protonix, tramadol, Flagyl, ceftriaxone, amlodipine 5 mg a day, and other p.r.n. medication. PHYSICAL EXAMINATION: VITAL SIGNS: Temperature of 98 Fahrenheit, blood pressure 110/70, heart rate of 80, respiratory rate of 18, afebrile. HEENT: Pupils are equal and reactive. NECK: No elevation of jugular venous pulsation. CHEST: Clear to auscultation and percussion. HEART: PMI in 5th left intercostal space. Normal first and second heart sounds. ABDOMEN: Tenderness all over, more pronounced on the left side of the abdomen. Bowel sounds are sluggish. EXTREMITIES: Minimal edema. No Lawrence sign. NEUROLOGIC: Awake, alert, oriented. LABORATORY DATA: White blood cell count of 11.3, hemoglobin of 13.2, hematocrit of 41%, platelet count of 329. Sodium of 138, potassium 3, BUN of 5, creatinine of 0.7. TSH of 4.6. Lipid profile showed cholesterol of 98, LDL of 49, HDL of 40. CT chest showed no PE. Venous Doppler showed no DVT. Echocardiogram showed preserved left ventricular systolic function. IMPRESSION AND PLAN: 1. Acute diverticulitis with recurrent diverticulitis. 2. Chest pain, resolved. 3. Initial workup showed no evidence of deep venous thrombosis or pulmonary embolism. RECOMMENDATIONS: Ambulation. Continuing treatment of the diverticulitis. All tests are discussed with the patient at length and explained. MD FRANKIE Walker/TARAL /[id number]
[2020-04-11] VITALS (9 sets, daily range): BP systolic 113–152; BP diastolic 69–86
[2020-04-11] MEDS: TRAMADOL HCL 50 MG TAB PO SCH ×4 (00:49→18:22)
[2020-04-11] MEDS: METRONIDAZOLE 500MG/NS 100ML 100 ML IV SCH ×2 (00:49→05:27)
[2020-04-11] MEDS: ONDANSETRON HCL INJ 2MG/ML 2ML 2 MG/ML VIAL IV PRN ×2 (01:25→10:48)
[2020-04-11] MEDS: HYDROMORPHONE 2MG/ML 2 MG/ML ML IV PRN ×3 (04:19→22:46)
[2020-04-11] MEDS: DEXTROSE 5%/0.9% SOD CHL 1,000 ML IV SCH (05:27)
[2020-04-11 05:34] LABS: BASOPHILS # (AUTO) 0.1 (0.0-0.1); BASOPHILS % 0.5 % (0.0-1.0); EOSINOPHILS # (AUTO) 0.2 (0.0-0.4); EOSINOPHILS % 1.5 % (0.0-6.0); HEMATOCRIT 41.8 % (34.2-44.1); HEMOGLOBIN 13.3 g/dL (12.0-16.0); LYMPHOCYTES # (AUTO) 2.4 (1.0-3.2); LYMPHOCYTES % 23.2 % (18.0-39.1); MEAN CORPUSCULAR HEMOGLOBIN 27.7 pg (28-32); MEAN CORPUSCULAR HGB CONC 31.8 g/dL (31-35); MEAN CORPUSCULAR VOLUME 87.1 fL (81-99); MONOCYTES # (AUTO) 0.9 (0.2-0.8); MONOCYTES % 8.4 % (4.4-11.3); NEUTROPHILS # (AUTO) 6.9 (2.1-6.9); PLATELET COUNT 315 x10e3/uL (140-360); RED CELL DISTRIBUTION WIDTH 13.6 % (11.7-14.4)
--- NOTE | 2020-04-11 05:52 | NUR ---
PT C/O PAIN ,NAUSEA AND VOMITING GIVEN ORDERED PAIN MEDICATION .CONTINUE TO MONITOR
--- NOTE | 2020-04-11 07:00 | NUR ---
BEDSIDE SHIFT REPORT RECEIVED FROM THE DEPUTY CORONER INVESTIGATOR RN. EDUCATED PT ABOUT FALL PRECAUTIONS. PT VERBALIZED UNDERSTANDING. CALL LIGHT WITH IN EASY REACH. INSTRUCTED PT TO USE CALL LIGHT FOR ALL THE NEEDS. BED IS LOW AND LOCKED. SIDE RAILS X2. PT DENIES NEEDS AT THIS TIME.
--- NOTE | 2020-04-11 07:17 | NUR ---
BEDSIDE REPORT GIVEN TO THE ONCOMING NURSE
[2020-04-11] MEDS: METOCLOPRAMIDE HCL 10 MG/2ML VIAL IV SCH ×4 (08:30→21:35)
[2020-04-11 09:27] LABS: ANION GAP 13.4 mmol/L (8-16); BLOOD UREA NITROGEN < 5 mg/dL (7-26); BUN/CREATININE RATIO 7 (6-25); CALCIUM 8.2 mg/dL (8.4-10.2); CARBON DIOXIDE 23 mmol/L (22-29); CHLORIDE 105 mmol/L (98-107); CREATININE, SERUM 0.71 mg/dL (0.57-1.11); EST GLOMERULAR FILTRATION RATE > 60 ML/MIN (60-); GLUCOSE 113 mg/dL (74-118); POTASSIUM 3.4 mmol/L (3.5-5.1); SODIUM 138 mmol/L (136-145)
[2020-04-11] MEDS: PANTOPRAZOLE 40 MG 10ML VIAL IV SCH ×2 (10:11→21:04)
[2020-04-11] MEDS: FAMCICLOVIR 500 MG TAB PO SCH ×3 (10:13→21:35)
[2020-04-11] MEDS: DIPHENOXYLATE/ATROPINE TAB PO SCH ×2 (10:13→16:28)
[2020-04-11] MEDS: AMLODIPINE BESYLATE 5 MG TAB PO SCH (10:13)
[2020-04-11] MEDS: DICYCLOMINE HCL 20 MG TAB PO SCH ×4 (10:13→21:35)
[2020-04-11] MEDS ORDERED: POTASSIUM CHLORIDE 20 MEQ TAB CR PO ONE (10:35)
[2020-04-11] MEDS: AMPICILLIN SOD/SULBACTAM 3GM 100 ML IV SCH ×3 (10:50→22:29)
--- NOTE | 2020-04-11 11:59 | Progress Note ---
DATE: SUBJECTIVE: The patient is complaining of vomiting. PHYSICAL EXAMINATION: VITAL SIGNS: Blood pressure 113/74, temperature 97.9, heart rate 64 per minute, respiratory rate 20 per minute, and oxygen saturation 98%. ABDOMEN: Soft, nontender. No distention. No visceromegaly. LABORATORY DATA: On the blood work, we have a CBC; white blood count 10.50, hemoglobin 13.3, hematocrit 41.8, and platelet count of 315,000. BMP; BMP sodium 138, potassium 3.4, chloride 104, CO2 of 23, BUN 5, creatinine 0.73, glucose 130, calcium 8.4, and magnesium 1.6. FINAL IMPRESSION: 1. Acute diverticulitis. 2. Vomiting, most likely secondary to the metronidazole. 3. Herpes zoster. 4. Obesity. 5. Hypokalemia. PLAN OF TREATMENT: We are going to change the IV antibiotics with the patient. Specifically, we are going to get rid of the metronidazole because of the vomiting. We are going to switch her to Unasyn 3.1 g IV q.6 hours. We are going to obviously discontinue the ceftriaxone. We are going to continue with amlodipine 5 mg daily for hypertension. We are going to continue with Bentyl 20 mg q.6 hours, Lomotil 1 tablet twice a day as needed for diarrhea, Famvir 500 mg three times a day. Continue contact isolation. Continue Dilaudid 1 mg IV q.6 hours as needed for severe pain. She is taking Reglan 10 mg IV before meals and at bedtime. Continue with Protonix IV 40 mg IV twice a day, tramadol 50 mg q.6 hours as needed. Potassium is going to be replaced. We are going to recheck the potassium level. Tentative discharge tomorrow, if she feels better. MD KELLI Hudson/SANDRA /[id number]
[2020-04-11 15:36] LABS: ANION GAP 13.3 mmol/L (8-16); BLOOD UREA NITROGEN < 5 mg/dL (7-26); CALCIUM 8.5 mg/dL (8.4-10.2); CARBON DIOXIDE 24 mmol/L (22-29); CHLORIDE 104 mmol/L (98-107); CREATININE, SERUM 0.67 mg/dL (0.57-1.11); EST GLOMERULAR FILTRATION RATE > 60 ML/MIN (60-); GLUCOSE 108 mg/dL (74-118); POTASSIUM 3.3 mmol/L (3.5-5.1); SODIUM 138 mmol/L (136-145)
[2020-04-11 15:38] LABS: BUN/CREATININE RATIO 7 (6-25)
--- NOTE | 2020-04-11 17:30 | NUR ---
PT TOLERATED GI SOFT DIET WELL. NO C/O PAIN OR NAUSEA.
--- NOTE | 2020-04-11 19:00 | NUR ---
BEDSIDE SHIFT REPORT GIVEN TO THE DIPPER AND DRIER RN. PT DENIED FURTHER NEEDS.
--- NOTE | 2020-04-11 19:03 | NUR ---
RECEIVED THE PATIENT IN REPORT.LYEING IN THE BED.STABLE CONDITION.NO PAIN VOICED.
--- NOTE | 2020-04-11 21:15 | NUR ---
Assessment done.no resp.distress.bed locked and in lowest position.phone and call light within reach.instructed to call for assistance as needed.
[2020-04-12] MEDS: TRAMADOL HCL 50 MG TAB PO SCH ×2 (00:03→06:04)
[2020-04-12] MEDS ORDERED: ONDANSETRON HCL INJ 2MG/ML 2ML 2 MG/ML VIAL IV PRN (00:45)
[2020-04-12] MEDS: ONDANSETRON HCL INJ 2MG/ML 2ML 2 MG/ML VIAL IV SCH ×2 (00:55→06:04)
--- NOTE | 2020-04-12 01:00 | NUR ---
IS IN THE UNIT.RECEIVED NEW ORDERS.INJ.ZOFRAN 8MG IV Q6H.ADMINISTERED DUE MEDICATION.
[2020-04-12 04:15] VITALS: BP 155/80
[2020-04-12] MEDS: AMPICILLIN SOD/SULBACTAM 3GM 100 ML IV SCH ×2 (04:20→09:44)
[2020-04-12 05:56] LABS: ANION GAP 13.2 mmol/L (8-16); BLOOD UREA NITROGEN < 5 mg/dL (7-26); CALCIUM 8.4 mg/dL (8.4-10.2); CARBON DIOXIDE 26 mmol/L (22-29); CHLORIDE 102 mmol/L (98-107); CREATININE, SERUM 0.66 mg/dL (0.57-1.11); EST GLOMERULAR FILTRATION RATE > 60 ML/MIN (60-); GLUCOSE 87 mg/dL (74-118); POTASSIUM 3.2 mmol/L (3.5-5.1); SODIUM 138 mmol/L (136-145)
[2020-04-12 05:59] LABS: BUN/CREATININE RATIO 8 (6-25)
[2020-04-12] MEDS: HYDROMORPHONE 2MG/ML 2 MG/ML ML IV PRN (06:31)
--- NOTE | 2020-04-12 07:10 | NUR ---
BED SIDE SHIFT REPORT GIVEN TO ONCOMING RN.STABLE CONDITION.
[2020-04-12 08:00] VITALS: BP 137/73
[2020-04-12 08:50] VITALS: BP 137/73
[2020-04-12] MEDS ORDERED: POTASSIUM CHLORIDE 20 MEQ TAB CR PO SCH (09:00)
[2020-04-12] MEDS: DICYCLOMINE HCL 20 MG TAB PO SCH (09:35)
[2020-04-12] MEDS: METOCLOPRAMIDE HCL 10 MG/2ML VIAL IV SCH (09:35)
[2020-04-12] MEDS: PANTOPRAZOLE 40 MG 10ML VIAL IV SCH (09:35)
[2020-04-12] MEDS: DIPHENOXYLATE/ATROPINE TAB PO SCH (09:36)
[2020-04-12] MEDS: FAMCICLOVIR 500 MG TAB PO SCH (09:36)
[2020-04-12] MEDS: AMLODIPINE BESYLATE 5 MG TAB PO SCH (09:37)
[2020-04-12 12:00] VITALS: BP 145/88
--- NOTE | 2020-04-12 12:45 | Discharge Summary ---
HOSPITAL COURSE: The patient is a 39-year-old female with no past medical history according to her except for recurrent diverticulitis with only six episodes for the last two years. The patient admitted because of abdominal pain. She was found to have diverticulitis, started on Levaquin and Flagyl. She was having some allergic reaction to Levaquin. We had to change it to Rocephin but then she continued vomiting because of Flagyl. We had to discontinue the Flagyl and discontinue Rocephin and start her on Unasyn, which she is tolerating really well. The patient has been seen by Dr. Madi Georges for Gastroenterology. The patient has been seen by Dr. Chase Marcus for surgery. The patient might be a candidate for elective colectomy once the diverticulitis resolved. The patient is feeling fine today. No evidence of any vomiting or abdominal pain. The patient is going home today with instruction to follow up with Dr. Madi Georges, Gastroenterology in a week and also Dr. Chase Marcus surgeon also in a week. PHYSICAL EXAMINATION: VITAL SIGNS: Temperature 98 degrees, heart rate 65 per minute, respiratory rate 20 per minute, blood pressure 137/73, pulse oximetry 99%. ABDOMEN: Soft, nontender. No distention. No visceromegaly. LABORATORY DATA: On the CBC, white blood count is normal at 10.50, hemoglobin 13.3, hematocrit 41.8, platelet count 315,000. On the BMP; sodium 138, potassium 3.2, chloride 102, CO2 26, BUN 5, creatinine 0.66, glucose 87, calcium 8.4, magnesium 1.5. FINAL DIAGNOSES: 1. Acute diverticulitis, which is resolving. 2. Vomiting, which is resolved. 3. Herpes zoster. 4. Obesity. 5. Hypertension. PLAN OF TREATMENT: The patient will be discharged home on Augmentin 875 mg twice a day for 10 days. She will continue with amlodipine 5 mg daily because of hypertension. Continue Famvir 500 mg three times a day for four more days. Continue Ultracet one tablet q.4 hours as needed for pain. The patient's potassium has been replaced today. The patient followup with Dr. Madi Georges in a week, Dr. Chase Marcus in a week and myself in a week. Also, she has to abstain from eating any vegetables with small seeds and peanuts of course. MD KELLI Hudson/SANDRA /[id number]
--- NOTE | 2020-04-12 13:00 | NUR ---
pt discharged home with prescriptions and follow up information iv site removed , no swelling no redness to site.
== END 2020-04-12 12:33 | disposition home or self-care (01) | DRG 392 ==
LOC: ER 09:39 → ERHOLD 14:09 → MED/SURG2 16:00 → OBSVTOIN 04-06 17:02
PROVIDERS: ADMIT Internal Medicine; ATTEND Internal Medicine
DX: K57.32 Diverticulitis of large intestine without perforation or abscess without bleeding (principal); N39.0 Urinary tract infection, site not specified; Z86.73 Personal history of transient ischemic attack (TIA), and cerebral infarction without residual deficits; Z90.49 Acquired absence of other specified parts of digestive tract; E66.9 Obesity, unspecified; Z68.39 Body mass index [BMI] 39.0-39.9, adult; R07.89 Other chest pain; K76.0 Fatty (change of) liver, not elsewhere classified; K52.9 Noninfective gastroenteritis and colitis, unspecified; B02.9 Zoster without complications; E66.01 Morbid (severe) obesity due to excess calories; R11.10 Vomiting, unspecified; T36.8X5A Adverse effect of other systemic antibiotics, initial encounter; I10 Essential (primary) hypertension; E87.6 Hypokalemia
CPT/HCPCS: 36415; 71260; 74177; 80048; 80053; 80061; 81001; 81025; 82550; 82553; 82948; 83630; 83690; 83735; 84443; 84484; 85025; 85610; 85651; 86140; 86256; 86671; 87045; 87086; 87177; 87493; 87635; 93005; 93306; 93970; 96361; 99284; G0378; J0295; J0696; J1956; J2270; J2405; J2765; J7030; J7042; J7050; Q0162; Q9967

== ENCOUNTER 2020-04-23 22:01 | Emergency (ER) | payer OTHER ==
[~2020-04-23] VITALS: Ht 162.6 cm; Wt 103.4 kg
--- OUTSIDE RECORDS SUMMARY | 2020-04-23 22:04 | XMS REPORT ---
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 Attphys Unavailable ROSEMARY, JUAN Admphys Unavailable TANIYA GAMBLE Admphys Unavailable ALL LEE M.D., Karuna CARRIZALES Admphys Un available Payers Payer Name Policy Type Policy Number Effective Date Expiration Date S our Allied Benefits Ppo Phcs NA 2019 00:00:00 [facility] Problems Condition Name Condition Details Condition Category Status Onset Date Resolution Date Last Treatment Date Treating Clinician Comments Source Diverticulitis Problem Active C [facility] Allergies, Adverse Reactions, Alerts This patient has no known allergies or adverse reactions. Family History Family Member Diagnosis Comments Start Date Stop Date Source Maternal grandmother Stroke Marc Contreras Paternal grandfather Diabetes Hous evelia Contreras Social History Social Habit Start Date Stop Date Quantity Comments Source Sex Assigned At Shasha cespedes Ben Alcohol intake 2018-03-25 00:00:00 2018-03-25 00:00:00 Current non-drinker of alcohol (finding) Tommy Contreras History of tobacco use 2017-05-05 00:00:00 Current smoker Tommy Contreras Smoking Status Start Date Stop Date Source Former smoker 2018-03-25 00:00:00 2018-03-25 00:00:00 Tommy Contreras Medications This patient has no known medications. Vital Signs Vital Name Observation Time Observation Value Comments Source Body Temperature 2020-04-12 12:00:00 98.5 [degF] [facility] BMI (Body Mass Index) 2020-04-05 15:53:00 39.1 kg/m2 [facility] Weight 2020-04-05 09:42:00 228 [lb_av] [facility] Weight 2020-03-30 15:19:00 228 [lb_av] [facility] BMI (Body Mass Index) 2020-03-30 15:19:00 39.1 kg/m2 [facility] Procedures Procedure Date / Time Performed Performing Clinician [facility] e Computed tomography of chest with contrast 2020-04-09 00:00:00 [facility] Computed tomography of abdomen and pelvis with contrast 00:00:00 [facility] Computed tomography of abdomen and pelvis with contrast 00:00:00 [facility] Computed tomography of abdomen and pelvis with contrast 00:00:00 [facility] Plan of Care Planned Activity Planned Date Details Comments Source Future Scheduled Test 2020-06-25 00:00:00 INFLUENZA VACCINE [code = INFLUENZA VACCINE] Tommy Contreras Future Scheduled Test 2001 00:00:00 Screening for neto gnant neoplasm of cervix (procedure) [code = 526869760] Tommy valle Instructions Diverticulitis [facility] Encounters Start Date/Time End Date/Time Encounter Type Admission Type Attendi [facility] Care Department Encounter ID Source 2020-04-06 17:02:00 2020-04-12 12:33:00 Discharged Inpatient 1 ROSEMARY, JUAN [facility] [id number] [facility] 2020-03-30 14:57:00 2020-03-31 00:15:00 Departed Emergency Room 1 VAUGHN HALLMAN [facility] [id number] [facility] 2017-10-25 09:19:00 2017-10-25 09:19:00 Outpatient [facility] [id number] [facility] 2017-09-27 10:50:00 2017-09-27 10:50:00 Outpatient [facility] [id number] [facility] Results Test Description Test Time Test Comments Results Result Comments Source Serum or plasma sodium measurement (moles/volume) 2020-04-12 04:50:00 Test Item Sodium Level (test code = 2951-2) 138 136-145 [facility] potassium [facility] (moles/volume)2020-04-12 04:50:00* Test Item Value Reference Range Interpretation Comments Potassium Level (test code = 2823-3) 3.2 3.5-5.1 [facility] chloride measurement (moles/volume)2020-04-12 04:50:00* Test Item Value Reference Range Interpretation Comments Chloride Level (test code = 2075-0) 102 98-107 [facility] carbon dioxide, total measurement (moles/volume)2020-04-12 04:50:00* Test Item Value Reference Range Interpretation Comments Carbon Dioxide Level (test code = 2028-9) 26 22-29 [facility] plasma anion umx1789-78-94 04:50:00* Test Item Value Reference Range Interpretation Comments Anion Gap (test code = 68884-1) 13.2 8-16 [facility] urea nitrogen measurement (mass/volume)2020-04-12 04:50:00* Test Item Value Reference Range Interpretation Comments Blood Urea Nitrogen (test code = 3094-0) < 5 7-26 [facility] plasma creatinine measurement (mass/volume)2020-04-12 04:50:00* Test Item Value Reference Range Interpretation Comments Creatinine (test code = 2160-0) 0.66 0.57-1.11 [facility] or plasma urea nitrogen/creatinine mass qagir9828-71-25 04:50:00* Test Item Value Reference Range Interpretation Comments BUN/Creatinine Ratio (test code = 3097-3) 8 6-25 [facility] CenterEstimated glomerular filtration rate (GFR) qvohegcatdzva3362-74-65 04:50:00* Test Item Value Reference Range Interpretation Comments Estimat Glomerular Filtration Rate (test code = 448533583) > 60 >60 Ranges were taken from the National Kidney Disease Education Program and the [facility] literature.Reference ranges:60 or greater: Baqwno59-90 ( for 3 consecutive months): Chronic kidney disease 15 or less: Kidney failureSt. Joseph Medical CenterGlucose ubnoefsipiz8544-95-89 04:50:00* Test Item Value Reference Range Interpretation Comments Glucose Level (test code = UIT2046) 87 74-118 [facility] plasma calcium measurement (mass/volume)2020-04-12 04:50:00* Test Item Value Reference Range Interpretation Comments Calcium Level (test code = 89535-3) 8.4 8.4-10.2 [facility] CenterCapillary blood glucose measurement by glucometer (mass/volume)2020-04-11 16:06:00* Test Item Value Reference Range Interpretation Comments Bedside Glucose (test code = 10260-7) 168 70-120 Meter ID: [id number] [facility] TomballBlood leukocytes automated count (number/volume)2020-04-11 05:00:00* Test Item Value Reference Range Interpretation Comments White Blood Count (test code = 6690-2) 10.50 4.8-10.8 [facility] CenterBlood erythrocytes automated count (number/volume)2020-04-11 05:00:00* Test Item Value Reference Range Interpretation Comments Red Blood Count (test code = 789-8) 4.80 3.6-5.1 [facility] CenterBlood hemoglobin measurement (moles/volume)2020-04-11 05:00:00* Test Item Value Reference Range Interpretation Comments Hemoglobin (test code = 47719-4) 13.3 12.0-16.0 [facility] CenterAutomated blood hematocrit (volume fraction)2020-04-11 05:00:00* Test Item Value Reference Range Interpretation Comments Hematocrit (test code = 4544-3) 41.8 34.2-44.1 [facility] CenterAutomated erythrocyte mean corpuscular wmgsyx6584-39-01 05:00:00* Test Item Value Reference Range Interpretation Comments Mean Corpuscular Volume (test code = 787-2) 87.1 81-99 [facility] CenterAutomated erythrocyte mean corpuscular hemoglobin (mass per erythrocyte)2020-04-11 05:00:00* Test Item Value Reference Range Interpretation Comments Mean Corpuscular Hemoglobin (test code = 785-6) 27.7 28-32 [facility] CenterAutomated erythrocyte mean corpuscular hemoglobin concentration measurement (mass/volume)2020-04-11 05:00:00* Test Item Value Reference Range Interpretation Comments Mean Corpuscular Hemoglobin Concent (test code = 786-4) 31.8 31-35 [facility] CenterRDW IjdWq-Fxu9194-11-18 05:00:00* Test Item Value Reference Range Interpretation Comments Red Cell Distribution Width (test code = 67780-3) 13.6 11.7 -14.4 [facility] CenterAutomated blood platelet count (count/volume)2020-04-11 05:00:00* Test Item Value Reference Range Interpretation Comments Platelet Count (test code = 777-3) 315 140-360 [facility] CenterAutecu health medical centered blood segmented neutrophil count as percentage of total mjwngprexx0199-65-38 05:00:00* Test Item Value Reference Range Interpretation Comments Neutrophils (%) (Auto) (test code = 52341-7) 66.0 38.7-80.0 [facility] CenterAutecu [facility] medical centered blood lymphocyte count as percentage ot total lkoangsjns2138-12-85 05:00:00* Test Item Value Reference Range Interpretation Comments Lymphocytes (%) (Auto) (test code = 736-9) 23.2 18.0-39.1 [facility] CenterAutomated blood monocyte count as percentage of total zqjcpzvzai6051-23-19 05:00:00* Test Item Value Reference Range Interpretation Comments Monocytes (%) (Auto) (test code = 5905-5) 8.4 4.4-11.3 [facility] CenterAutomated blood eosinophil count as percentage of total fkxsvrsiht9508-86-65 05:00:00* Test Item Value Reference Range Interpretation Comments Eosinophils (%) (Auto) (test code = 713-8) 1.5 0.0-6.0 [facility] CenterAutomated blood basophil count as percentage of total bpdbdevvqd5415-15-94 05:00:00* Test Item Value Reference Range Interpretation Comments Basophils (%) (Auto) (test code = 706-2) 0.5 0.0-1.0 [facility] CenterFluoroscopic procedure less than one hour haowlmnt6178-93-09 05:00:00* Test Item Value Reference Range Interpretation Comments IM GRANULOCYTES % (test code = IM GRANULOCYTES %) 0.4 0.0- 1.0 [facility] CenterAutomated blood neutrophil count 2020-04-11 05:00:00* Test Item Value Reference Range Interpretation Comments Neutrophils # (Auto) (test code = 751-8) 6.9 2.1-6.9 [facility] CenterBlood lymphocytes count (number/volume) 2020-04-11 05:00:00* Test Item Value Reference Range Interpretation Comments Lymphocytes # (Auto) (test code = 35926-9) 2.4 1.0-3.2 [facility] CenterBlreg[facility] monocytes automated count (number/volume)2020-04-11 05:00:00* Test Item Value Reference Range Interpretation Comments Monocytes # (Auto) (test code = 742-7) 0.9 0.2-0.8 [facility] CenterAutomated blood eosinophil count 2020-04-11 05:00:00* Test Item Value Reference Range Interpretation Comments Eosinophils # (Auto) (test code = 711-2) 0.2 0.0-0.4 [facility] CenterAutomated blood basophil count (count/volume)2020-04-11 05:00:00* Test Item Value Reference Range Interpretation Comments Basophils # (Auto) (test code = 704-7) 0.1 0.0-0.1 [facility] CenterFluoroscopic procedure less than one hour zemvldwt7978-32-03 05:00:00* Test Item Value Reference Range Interpretation Comments Absolute Immature Granulocyte (auto (maurilio t code = Absolute Immature Granulocyte (auto) 0.04 0-0.1 [facility]ere[facility] or plasma magnesium measurement (mass/volume)2020-04-11 05:00:00* Test Item Value Reference Range Interpretation Comments Magnesium Level (test code = 18985-5) 1.5 1.3-2.1 [facility] Centererum or plasma total bilirubin measurement (mass/volume)2020-04-10 05:10:00* Test Item Value Reference Range Interpretation Comments Total Bilirubin (test code = 1975-2) 0.3 0.2-1.2 [facility] CenterFluoroscopic procedure less than one hour vjqemaef2632-39-16 05:10:00* Test Item Value Reference Range Interpretation Comments Aspartate Amino Transf (AST/SGOT) (test code = Aspartate Amino Transf (AST/SGOT)) 16 5-34 [facility] Centererum or plasma alanine aminotransferase measurement (enzymatic activity/volume)2020-04-10 05:10:00* Test Item Value Reference Range Interpretation Comments Alanine Aminotransferase (ALT/SGPT) (test code = 1742-6) 22 0-55 [facility]ere[facility] or plasma protein measurement (mass/volume)2020-04-10 05:10:00* Test Item Value Reference Range Interpretation Comments Total Protein (test code = 2885-2) 6.3 6.5-8.1 [facility]ererum or plasma albumin measurement (mass/volume)2020-04-10 05:10:00* Test Item Value Reference Range Interpretation Comments Albumin (test code = 1751-7) 3.0 3.5-5.0 [facility] CenterPlasma globulin measurement (mass/volume) 2020-04-10 05:10:00* Test Item Value Reference Range Interpretation Comments Globulin (test code = 71122-2) 3.3 2.3-3.5 [facility] Centererum or plasma albumin/globulin mass bvhuf9994-78-73 05:10:00* Test Item Value Reference Range Interpretation Comments Albumin/Globulin Ratio (test code = 1759-0) 0.9 0.8-2.0 [facility] Centererum or plasma alkaline phosphatase measurement (enzymatic activity/volume)2020-04-10 05:10:00* Test Item Value Reference Range Interpretation Comments Alkaline Phosphatase (test code = 6768-6) 78 40-150 [facility]ererum or plasma triglyceride measurement (mass/volume)2020-04-10 05:10:00* Test Item Value Reference Range Interpretation Comments Triglycerides Level (test code = 2571-8) 43 0-149 [facility]ererum or plasma cholesterol measurement (mass/volume)2020-04-10 05:10:00* Test Item Value Reference Range Interpretation Comments Cholesterol Level (test code = 2093-3) 98 0-199 Less than 200 mg/dL Low Hgow424 - 239 mg/dL Borderline Qbpd705 m g/dl and greater High Risk [facility]ererum or plasma cholesterol in LDL measurement (mass/volume) 2020-04-10 05:10:00* Test Item Value Reference Range Interpretation Comments LDL Cholesterol (test code = 2089-1) 49 60-130 [facility]ererum or plasma cholesterol in HDL measurement (mass/volume)2020-04-10 05:10:00* Test Item Value Reference Range Interpretation Comments HDL Cholesterol (test code = 2085-9) 40 40-60 [facility] Centererum or plasma total cholesterol/cholesterol in HDL mass gqejw8161-69-73 05:10:00* Test Item Value Reference Range Interpretation Comments Cholesterol/HDL Ratio (test code = 9830-1) 2.5 3.0-3.6 [facility] Centererum or plasma thyrotropin measurement by detection limit <= 0.005 miu/l (units/volume)2020-04-10 05:10:00* Test Item Value Reference Range Interpretation Comments Thyroid Stimulating Hormone (TSH) (test code = 63469-8) 4.627 0.350-4.940 [facility] CenterCT CHEST D1906-71-45 20:15:00 [facility] [address] [place] [address] Patient Name: CITLALI VALDEZ MR #: [id number] : 1980 Age/Sex: 39/F Req #: [id number] Adm Physician: JUAN RILEY MD Ordered by: MIN RUTH MD Report #: [id number] Location: MED/SURG2 Room/Bed: [facility] Procedure: [id number] CT/CT CHEST W Exam Date: 04/09/20 Exam Time: 1949 REPORT STATUS: Signed EXAM: CT Chest WITH cont rast 04/09/2020 7:51 PM INDICATION: Shortness of breath COMPARISON: N one TECHNIQUE: Chest was scanned utilizing a multidetector helical scanne r from the lung apex through the level of the adrenal glands without administr ation of IV contrast. Coronal and sagittal reformations were obtained. Pulmona ry embolism protocol was performed. IV CONTRAST: 100 mL of Omnipaque 30 0 COMPLICATIONS: None RADIATION DOSE: Total DLP: 804 mGy*cm Estimated effective dose: (DLP x 0.014 x size factor) mSv CTDIvol has been reviewed. It is below the limits set by the Radiation Protocol Committee (RPC). Dose modulation, iterative reconstruction, and/or weight based a djustment of the mA/kV was utilized to reduce the radiation dose to as low as reasonably achievable. FINDINGS: Significantly limited study due to poor timing of the contrast bolus. The majority of the contrast is within the proximal aorta and left heart. LINES/ TUBES: None. LUNGS AND AIRWAYS: The lungs are unremarkable. Airways are normal. PLEURA: The pleural spaces are clear. HEART AND MEDIASTINUM: The thyroid gland is normal. No media stinal, hilar or axillary lymphadenopathy. The heart is normal in size. There is no pericardial effusion. The pulmonary arteries are poorly opacified. No large central pulmonary embolus is identified. The distal branches cannot be a dequately evaluated. UPPER ABDOMEN: Fatty infiltration of the liver. Gall bladder is surgically absent. Small posterior gastric diverticulum. BONES : The visualized bony thorax is within normal limits. SOFT TISSUES: Unremar kable. IMPRESSION: 1. Suboptimal study with poor opacification of the pu lmonary arteries. No central pulmonary embolus is identified. The distal pulmo nary artery branches are inadequately evaluated. 2. The lungs are clear. Signed by: Timbo Gallegos MD on 04/09/2020 8:19 PM Dictated By: Get GALLEGOS MD 18 Transcribed By: YUMIKO on 04/09/202018 COPY TO: MIN RUTH MD CT ABDOMEN/PELVIS [id number] 07:00:00 [place] [address] Patient Name: CITLALI VALDEZ MR #: [id number] : 1980 Age/Sex: 39/F Req #: [id number] Adm Physician: JUAN RILEY MD Ordered by: DIPAK DELGADILLO MD Report #: [id number] Location: MED/SURG2 Room/Bed: [facility] Procedure: [id number] CT/CT ABDO MEN/PELVIS W Exam Date: 04/08/20 Exam Time: 0645 REPORT STATUS: Signed EXAM: CT Abdo men and Pelvis WITH contrast INDICATION: Abdominal pain COMPARISON: 04/05/2020 TECHNIQUE: Abdomen and pelvis were scanned utilizing a multidetector helical scanner from the lung base to the pubic symphysis after administration of IV contrast. Coronal and sagittal reformations were obtained. Routine pro tocol was performed. Scan was performed when during portal venous phase. IV CONTRAST: 100 mL of Isovue 370 ORAL CONTRAST: Water COMPLICATIONS: None RADIATION DOSE: Total DLP: 804 mGy*cm Estimated effective dose: (DLP x 0.015 x size factor) mSv CTDIvol has b een reviewed. It is below the limits set by the Radiation Protocol Committee ( RPC). Dose modulation, iterative reconstruction, and/or weight based adju stment of the mA/kV was utilized to reduce the radiation dose to as low as tricia sonably achievable. FINDINGS: LINES and TUBES: None. LOWER THO RAX: Unremarkable HEPATOBILIARY: Mild fatty infiltration of the liver. No focal hepatic lesions. No biliary ductal dilation. GALLBLADDER: Surgica lly absent. SPLEEN: No splenomegaly. PANCREAS: No focal masses or estefany aide dilatation. ADRENALS: No adrenal nodules. KIDNEYS/URETERS: K idneys enhance symmetrically. No hydronephrosis. No cystic or solid mass lesi ons. No stones. GI TRACT: No abnormal distention, wall thickening, or evid ence of bowel obstruction. Mild colonic diverticulosis. Unchanged subtle fat stranding about the distal descending colon. Appendix is normal. PELVIC ORGANS/BLADDER: The bladder is unremarkable. An IUD is again noted. LYMPH N ODES: No lymphadenopathy. VESSELS: Unremarkable. PERITONEUM / RETROPER ITONEUM: No free air or fluid. BONES: Unremarkable. SOFT TISSUES: Unre markable. IMPRESSION: No interval changes when compared to t he previous CT scan from 3 days ago. Unchanged mild diverticulitis of the dist al descending colon. No abscess or other complication. Signed by: Timbo Gallegos MD on 04/08/2020 7:06 AM Dictated By: TIMBO GALLEGOS MD Electron ically Signed By: TIMBO GALLEGOS MD on 04/08/20705 Transcribed By: YUMIKO on 04/08/20705 COPY TO: DIPAK DELGADILLO MD Stool lactoferrin dxbcswwuv7388-96-16 05:00:00* Test Item Value Reference Range Interpretation Comments Stool Lactoferrin (LAB) (test code = 39552-4) POSITIVE NEGATIVE Testing on stool aspirate specimens is outside documentation clerk claims since specime n type not validated on this assay.[facility] Erythrocyte sedimentation rate by Westergren axtnbt5056-38-28 04:50:00* Test Item Value Reference Range Interpretation Comments Erythrocyte Sedimentation Rate (test code = 4537-7) 29 0- 20 [facility]ererum or plasma C reactive protein measurement (mass/volume)2020-04-07 04:50:00* Test Item Value Reference Range Interpretation Comments C-Reactive Protein (test code = 1988-5) 16 0-10 Performed at: - [facility] [address] [place], [place] [id number] Director: Getachew Blackburn MD, Phone: [phone] [facility] PlanoClostridium difficile A and B toxin zdmhc7542-98-57 13:30:00* Test Item Value Reference Range Interpretation Comments Clostridium Difficile Toxin A & B (test code = 879561508) NEGATIVE NEGATIVE Testing on stool aspirate specimens is outside documentation clerk claims since specime n type not validated on this assay.[facility] Fluoroscopic procedure less than one hour gspsrsit3807-68-93 15:45:00* Test Item Value Reference Range Interpretation Comments Coronavirus (PCR) (test code = Coronavirus (PCR)) NOT DETECTED NOTD ETECTED SARS-COV-2 (COVID19), HIGHRISK, RT-PCRNegative results do not preclude SARS-CoV- 2 infection and should not be used as the sole basis for patient management deci sions. Negative results must be combined with clinical observations, patient his tory, and epidemiological information. Optimum specimen types and timing for pea k viral levels during infections caused by SARS-CoV-2 have not been determined. Collection of multiple specimens ot types of specimens may be necessary to detec t virus. Improper specimen collection and handling, sequence variability under p rimers/probes, or organism present below the limit of detection may lead to fals e negative results. Positive and negative predictive values of testing are highl y dependent on prevalance. False negative test results are more likely when prev alence is high.The expected result is negative (not detected).The SARS-CoV-2 maurilio t is intended for the qualitative detection of nucleic acid from SARS-CoV-2 in n asopharyngeal and oropharyngeal swab samples from patients who meet COVID-19 cli nical and or epidemiological criteria. For lower respiratory tract specimens, th e assay is submitted for authoriztion by FDA under an Emergency Use Authorizatio n (EUA). Testing methodology is real time RT-PCR. If received as separate collec tion devices, nasopharygeal and oropharyngeal specimens are combined for analysi s. Additional specimens may be split to a separate accession for analysi and rep orting as this test includes a single unit of service.Test results must be corre lated with clinical presentation and evaluated in the context of other laborator y and epidemiologic data. Test performance can be affected because the epidemiol ogy and clinical spectrum of infection caused by SARS-CoV-2 is not fully known. For example, the optimum types of specimens to collect and when during the cours e of infection these specimens are most likely to contain detectable viral RNA m ay not be known.This test has not been Food and Drug Administration (FDA) cleare d or approved and has been authorized by FDA under an Emergency Use Authorizatio n (EUA). The test is only authorized for the duration of the declaration that ci rcumstances exist justifying the authorization of emergency use of in vitro diag nostic tests for detection and/or diagnosis of SARS-CoV-2 under section 564(b) o f the Act, 21 U.S.C. section 360bbb-3(b)(1), unless the authorization is termina brice or revoked sooner. [facility] are certified under the C linical Laboratory Improvement Amendments of 1988 (CLIA), 42 U.S.C. section 263a , to perform high complexity tests.Testing performed by [facility] [id number] [place], [place] [phone] Director: Carlos Kline M.D.CLIA # [id number] [facility]anoCT [facility]BD[facility]/PELVIS [id number] 12:41:00 [place] [address] Patient Name: CITLALI VALDEZ MR #: [id number] : 1980 Age/Sex: 39/F Req #: [id number] Adm Physician: Ordered by: OLIVIA RUTH DO Report #: [id number] Location: ER Room/Bed: Procedure: [id number] CT/CT ABDOM EN/PELVIS W Exam Date: 04/05/20 Exam Time: 1140 REPORT STATUS: Signed CT of the abdo men and pelvis, with contrast. History: Abdominal pain. Comparison : CT abdomen/pelvis with contrast from 03/30/2020. Technique: Multidetector C T scanning of the abdomen and pelvis was performed from the level of the lung bases to the inferior pubic rami after intravenous administration of contrast. Coronal and sagittal multiplanar reformations were obtained. RADIATION DOSE: Total DLP: 875.00 mGy*cm Dose modulation, iterative reconstr uction, and/or weight based adjustment of the mA/kV was utilized to reduce the radiation dose to as low as reasonably achievable. FINDINGS: The lung bases are unremarkable. The imaged portion of the heart demonstrates no signi ficant abnormalities. The liver is diffusely decreased in attenuation yordy tible with fatty infiltration. No focal hepatic abnormality is identified. The gallbladder is surgically absent. There is no biliary ductal dilatation. The stomach, spleen, pancreas, and bilateral adrenal glands are unremarkable. Inst antly noted is a splenule adjacent to the spleen. The kidneys are normal in size and location and enhance symmetrically. There is no evidence for hydr onephrosis. The ureters are normal in course and caliber without evidence for radiopaque stone or abnormal dilatation. The urinary bladder demonstrates no s ignificant abnormalities. An intrauterine device is identified in place. The u terus and adnexa are otherwise grossly unremarkable. The abdominal aorta is normal course and caliber. The IVC is unremarkable. Please note evaluation the bowel is limited without the use of enteric contrast material. Again iden tified is wall thickening and adjacent inflammatory change about the descendin g colon in the region of diverticula. Adjacent inflammatory change is slightly less prominent than from the prior examination from 03/30/2020. There is no bal dence for perforation or organized fluid collection to suggest abscess rotatio n. The remaining visualized loops of small and large bowel demonstrate no evidence of obstruction or inflammation. The appendix is visualized and appear s unremarkable. There is no ascites or intraperitoneal free air. No abnormally enlarged lymph nodes are identified within the abdomen or pelvis. The os seous structures demonstrate no evidence for acute fracture or destructive pro cess. The extraperitoneal soft tissues are unremarkable. IMPRESSION: Again identified are CT findings compatible with acute diverticulitis of the descending colon with slight interval reduction in adjacent inflammatory espinal ge. No evidence for perforation or abscess from a patient. CT findings sugg estive of hepatic steatosis. Signed by: Dr. Aly Oliveros MD on 04/05/2020 1 2:48 PM Dictated By: ALY OLIVEROS MD 47 Transcribed By: YUMIKO on 04/05/201247 COPY TO: OLIVIA RUTH DO Prothrombin time (PT) in platelet poor plasma by coagulation [id number] 10:20:00* Test Item Value Reference Range Interpretation Comments Prothrombin Time (test code = 5902-2) 13.5 11.9-14.5 [facility] Platelet poor plasma by Coagulation uabwb2213-91-73 10:20:00* Test Item Value Reference Range Interpretation Comments Prothromb Time International Ratio (test code = 6301-6) 0.97 Oral Anticoagulant Therapy INR Values:1. Low Intensity Therapy 1.5 - 2.02 . Moderate Intensity Therapy 2.0 - 3.03. High Intensity Therapy(1) 2.5 - 3. 54. High Intensity Therapy(2) 3.0 - 4.05. Panic Value INR > 5.0 [facility] CenterUrine color fkupcgngbrogh3276-60-99 09:55:00* Test Item Value Reference Range Interpretation Comments Urine Color (test code = 5778-6) ORANGE YELLOW [facility] CenterUrine uhntspb3892-07-52 09:55:00* Test Item Value Reference Range Interpretation Comments Urine Clarity (test code = 46453-9) SL CLOUDY [facility]AR [facility] Urine by Test strip 2020-04-05 09:55:00* Test Item Value Reference Range Interpretation Comments Urine Specific [place] (test code = 5811-5) >=1.030 1.010-1.[address] [facility] CenterU[facility] pH measurement by automated test uuukw8783-26-01 09:55:00* Test Item Value Reference Range Interpretation Comments Urine pH (test code = 73956-3) 6.5 5-7 [facility] CenterUrine leukocyte esterase detection by qbytojha8048-60-29 09:55:00* Test Item Value Reference Range Interpretation Comments Urine Leukocyte Esterase (test code = 5799-2) TRACE NEGATIVE [facility] CenterUrine nitrite sfhfajjfp9919-96-19 09:55:00* Test Item Value Reference Range Interpretation Comments Urine Nitrite (test code = 63596-3) NEGATIVE NEGATIVE [facility] CenterUrine protein measurement by test strip (mass/volume)2020-04-05 09:55:00* Test Item Value Reference Range Interpretation Comments Urine Protein (test code = 5804-0) 1+ NEGATIVE [facility] CenterUrine glucose ontgexzhu9081-24-91 09:55:00* Test Item Value Reference Range Interpretation Comments Urine Glucose (UA) (test code = 2349-9) NEGATIVE NEGATIVE [facility] CenterUrine ketones detection by automated test jmpmy2468-02-34 09:55:00* Test Item Value Reference Range Interpretation Comments Urine Ketones (test code = 34394-2) >=[address] [facility] CenterUrine urobilinogen measurement by test strip (mass/volume)2020-04-05 09:55:00* Test Item Value Reference Range Interpretation Comments Urine Urobilinogen (test code = 61475-5) 0.2 0.2-1 [facility] CenterU[facility] total bilirubin measurement (mass/volume)2020-04-05 09:55:00* Test Item Value Reference Range Interpretation Comments Urine Bilirubin (test code = 1978-6) MODERATE NEGATIVE [facility] CenterUrine erythrocytes jkukcnhlz8610-13-78 09:55:00* Test Item Value Reference Range Interpretation Comments Urine Blood (test code = 82037-5) TRACE NEGATIVE [facility] CenterAutomated urine sediment leukocyte count by microscopy (number/high power field)2020-04-05 09:55:00* Test Item Value Reference Range Interpretation Comments Urine WBC (test code = 5821-4) >50 0-5 [facility] CenterErythrocytes detection in urine sediment by light klwmdfbyzk8982-43-95 09:55:00* Test Item Value Reference Range Interpretation Comments Urine RBC (test code = 30980-4) 21-50 0-5 [facility] CenterBacteria detection in urine sediment by light fksnbdjeui4810-27-56 09:55:00* Test Item Value Reference Range Interpretation Comments Urine Bacteria (test code = 42058-3) RARE NONE [facility] CenterEpithelial cells detection in urine sediment by light ffiffcwcae5410-26-29 09:55:00* Test Item Value Reference Range Interpretation Comments Urine Epithelial Cells (test code = 54790-0) FEW NONE [facility] CenterUrine human chorionic gonadotropin (hCG) aokezbcvb5446-59-93 09:55:00* Test Item Value Reference Range Interpretation Comments Urine Test (test code = 2106-3) NEGATIVE NEGATIVE [facility] Centererum or plasma creatine kinase measurement (enzymatic activity/volume)2020-04-05 09:55:00* Test Item Value Reference Range Interpretation Comments Creatine Kinase (test code = 2157-6) 60 29-168 [facility] Centererum or plasma creatine kinase MB measurement (mass/volume)2020-04-05 09:55:00* Test Item Value Reference Range Interpretation Comments Creatine Kinase MB (test code = 99033-1) 0.90 0-5.0 [facility] CenterTroponin I measurement by highly sensitive enzyme hckmbrxdcir7297-25-86 09:55:00* Test Item Value Reference Range Interpretation Comments Troponin I (test code = 66578-3) < 0.001 0-0.300 [facility] Centererum or plasma lipase measurement (enzymatic activity/volume)2020-04-05 09:55:00* Test Item Value Reference Range Interpretation Comments Lipase (test code = 3040-3) 12 8-78 [facility] CenterCT ABDOMEN/PELVIS [id number] 20:02:00 [facility] [address] [place] [address] Patient Name: CITLALI VALDEZ MR #: [id number] : 1980 [facility] 39[id number] Req #: [id number] Adm Physician: Ordered by: BRANDON CLAIRE NP Report #: [id number] Location: ER Room/Bed: Procedure: [id number] CT/CT ABDOME N/PELVIS W Exam Date: 03/30/20 Exam Time: 1919 REPORT STATUS: Signed CT Abdomen And Pelvis with Intravenous Contrast INDICATION: LEFT LOWER ABD PAIN 1919 TECHNIQUE: Thin collimation axial images obtained from the d iaphragm to the level of the pubic symphysis following the uneventful administ ration of 100 cc of low osmolar, nonionic intravenous contrast. Dose red uction techniques used: Automated exposure control, adjustment of the mAs and/ or kVp according to patient size, standardized low-dose protocol, and/or itera tive reconstruction technique. RADIATION DOSE: Total DLP: 841.72 mGy*cm Estimated effective dose: (DLP x 0.015 x size factor) mSv CTDIvol has been reviewed. It is below the limits set by the Radiation Prot ocol Committee (RPC). COMPARISON: None. ABDOMEN FINDINGS: Lung B ases: Clear. The visualized portions of the mediastinum are normal. Liver: Steatosis. No evidence for mass. Gallbladder: Absent. No biliary ductal d ilatation. Pancreas: Normal attenuation without mass or ductal dilatation. Spleen: Normal in size. No evidence of mass. Adrenal Glands: No evide nce for mass. Kidneys: Right: Normal enhancement. No soft tissue mas s. No hydronephrosis. Left: Normal enhancement. No soft tissue mass. No hydronephrosis. Lymph Nodes: No lymphadenopathy. Aorta: Normal in d iameter PELVIS FINDINGS: Bowel: Stomach: Normal. Small Bowel: N ormal in caliber with normal wall thickness. Large Bowel: Diverticulosis of the descending colon. There is no plain diverticulum in the mid/distal descend ing colon without associated fluid collection. No significant diverticulosis o f the sigmoid colon Appendix: Normal. Bladder: Normal. The uterus is present and contains an intrauterine device in appropriate position. No adnex al mass. Peritoneum/retroperitoneum: Trace amount of fluid along the left p aracolic. No free air. No loculated fluid collection. Bones: Unremarkable for age. IMPRESSION: 1. Acute diverticulitis of the descending colo n. No abscess formation. 2. Steatosis. 3. Cholecystectomy. Sign ed by: Dr. Troy Villalobos MD on 03/30/2020 8:05 PM Dictated By: JIMMIE VILLALOBOS MD 04 Transcribed By: YUMIKO on 03/30/202004 COPY TO: BRANDON CLAIRE AMMUNITION SPECIALIST Blood leukocytes automated count (number/volume)2020-03-30 18:24:00* Test Item Value Reference Range Interpretation Comments White Blood Count (test code = 6690-2) 14.79 4.8-10.8 [facility] CenterBlood erythrocytes automated count (number/volume)2020-03-30 18:24:00* Test Item Value Reference Range Interpretation Comments Red Blood Count (test code = 789-8) 4.90 3.6-5.1 [facility] CenterBlood hemoglobin measurement (moles/volume)2020-03-30 18:24:00* Test Item Value Reference Range Interpretation Comments Hemoglobin (test code = 02309-7) 13.8 12.0-16.0 [facility] CenterAutomated blood hematocrit (volume fraction)2020-03-30 18:24:00* Test Item Value Reference Range Interpretation Comments Hematocrit (test code = 4544-3) 43.3 34.2-44.1 [facility] CenterAutomated erythrocyte mean corpuscular xcfwbz8485-41-64 18:24:00* Test Item Value Reference Range Interpretation Comments Mean Corpuscular Volume (test code = 787-2) 88.4 81-99 [facility] CenterAutomated erythrocyte mean corpuscular hemoglobin (mass per erythrocyte)2020-03-30 18:24:00* Test Item Value Reference Range Interpretation Comments Mean Corpuscular Hemoglobin (test code = 785-6) 28.2 28-32 [facility] CenterAutomated erythrocyte mean corpuscular hemoglobin concentration measurement (mass/volume)2020-03-30 18:24:00* Test Item Value Reference Range Interpretation Comments Mean Corpuscular Hemoglobin Concent (test code = 786-4) 31.9 31-35 [facility] CenterRDW YyjYi-Hxv4460-11-06 18:24:00* Test Item Value Reference Range Interpretation Comments Red Cell Distribution Width (test code = 06187-2) 14.0 11.7 -14.4 [facility] CenterAutomated blood platelet count (count/volume)2020-03-30 18:24:00* Test Item Value Reference Range Interpretation Comments Platelet Count (test code = 777-3) 329 140-360 [facility] CenterAutomated blood segmented neutrophil count as percentage of total hhitmlygvt6538-33-25 18:24:00* Test Item Value Reference Range Interpretation Comments Neutrophils (%) (Auto) (test code = 95193-5) 72.1 38.7-80.0 [facility] CenterAutomated blood lymphocyte count as percentage ot total ekicydwucr3863-24-52 18:24:00* Test Item Value Reference Range Interpretation Comments Lymphocytes (%) (Auto) (test code = 736-9) 20.6 18.0-39.1 [facility] CenterAutomated blood monocyte count as percentage of total xlnklqfxrf9160-68-46 18:24:00* Test Item Value Reference Range Interpretation Comments Monocytes (%) (Auto) (test code = 5905-5) 5.9 4.4-11.3 [facility] CenterAutomated blood eosinophil count as percentage of total ibsjzxhzjb3913-50-06 18:24:00* Test Item Value Reference Range Interpretation Comments Eosinophils (%) (Auto) (test code = 713-8) 0.8 0.0-6.0 [facility] CenterAutomated blood basophil count as percentage of total wqjvgyfzly5585-64-45 18:24:00* Test Item Value Reference Range Interpretation Comments Basophils (%) (Auto) (test code = 706-2) 0.3 0.0-1.0 [facility] CenterFluoroscopic procedure less than one hour xkztqdcj8187-56-86 18:24:00* Test Item Value Reference Range Interpretation Comments IM GRANULOCYTES % (test code = IM GRANULOCYTES %) 0.3 0.0- 1.0 [facility] CenterAutomated blood neutrophil count 2020-03-30 18:24:00* Test Item Value Reference Range Interpretation Comments Neutrophils # (Auto) (test code = 751-8) 10.6 2.1-6.9 [facility] CenterBlood lymphocytes count (number/volume) 2020-03-30 18:24:00* Test Item Value Reference Range Interpretation Comments Lymphocytes # (Auto) (test code = 96665-3) 3.1 1.0-3.2 [facility] CenterBlood monocytes automated count (number/volume)2020-03-30 18:24:00* Test Item Value Reference Range Interpretation Comments Monocytes # (Auto) (test code = 742-7) 0.9 0.2-0.8 [facility] CenterAutomated blood eosinophil count 2020-03-30 18:24:00* Test Item Value Reference Range Interpretation Comments Eosinophils # (Auto) (test code = 711-2) 0.1 0.0-0.4 [facility] CenterAutomated blood basophil count (count/volume)2020-03-30 18:24:00* Test Item Value Reference Range Interpretation Comments Basophils # (Auto) (test code = 704-7) 0.1 0.0-0.1 [facility] CenterFluoroscopic procedure less than one hour hesyofaa2478-77-21 18:24:00* Test Item Value Reference Range Interpretation Comments Absolute Immature Granulocyte (auto (maurilio t code = Absolute Immature Granulocyte (auto) 0.05 0-0.1 [facility] Centererum or plasma sodium measurement (moles/volume)2020-03-30 18:24:00* Test Item Value Reference Range Interpretation Comments Sodium Level (test code = 2951-2) 141 136-145 [facility] Centererum or plasma potassium measurement (moles/volume)2020-03-30 18:24:00* Test Item Value Reference Range Interpretation Comments Potassium Level (test code = 2823-3) 3.4 3.5-5.1 [facility] Centererum or plasma chloride measurement (moles/volume)2020-03-30 18:24:00* Test Item Value Reference Range Interpretation Comments Chloride Level (test code = 2075-0) 105 98-107 [facility] Centererum or plasma carbon dioxide, total measurement (moles/volume)2020-03-30 18:24:00* Test Item Value Reference Range Interpretation Comments Carbon Dioxide Level (test code = 2028-9) 25 22-29 [facility] Centererum or plasma anion vlx8218-65-20 18:24:00* Test Item Value Reference Range Interpretation Comments Anion Gap (test code = 22908-0) 14.4 8-16 [facility] Centererum or plasma urea nitrogen measurement (mass/volume)2020-03-30 18:24:00* Test Item Value Reference Range Interpretation Comments Blood Urea Nitrogen (test code = 3094-0) 7 7-26 [facility] Centererum or plasma creatinine measurement (mass/volume)2020-03-30 18:24:00* Test Item Value Reference Range Interpretation Comments Creatinine (test code = 2160-0) 0.81 0.57-1.11 [facility] Centererum or plasma urea nitrogen/creatinine mass rbpyl9256-75-22 18:24:00* Test Item Value Reference Range Interpretation Comments BUN/Creatinine Ratio (test code = 3097-3) 9 6-25 [facility] CenterEstimated glomerular filtration rate (GFR) tyamhlhldgcav9972-73-85 18:24:00* Test Item Value Reference Range Interpretation Comments Estimat Glomerular Filtration Rate (test code = 044885048) > 60 >60 Ranges were taken from the National Kidney Disease Education Program and the [facility] literature.Reference ranges:60 or greater: Ngxtqr93-57 ( for 3 consecutive months): Chronic kidney disease 15 or less: Kidney failureSt. Joseph Medical CenterGlucose jqymcrmjnfc3410-60-02 18:24:00* Test Item Value Reference Range Interpretation Comments Glucose Level (test code = JUF2683) 87 74-118 [facility] Centererum or plasma calcium measurement (mass/volume)2020-03-30 18:24:00* Test Item Value Reference Range Interpretation Comments Calcium Level (test code = 11823-2) 9.3 8.4-10.2 [facility] Centererum or plasma total bilirubin measurement (mass/volume)2020-03-30 18:24:00* Test Item Value Reference Range Interpretation Comments Total Bilirubin (test code = 1975-2) 0.5 0.2-1.2 [facility] CenterFluoroscopic procedure less than one hour zgapudhy4454-42-49 18:24:00* Test Item Value Reference Range Interpretation Comments Aspartate Amino Transf (AST/SGOT) (test code = Aspartate Amino Transf (AST/SGOT)) 15 5-34 [facility] Centererum or plasma alanine aminotransferase measurement (enzymatic activity/volume)2020-03-30 18:24:00* Test Item Value Reference Range Interpretation Comments Alanine Aminotransferase (ALT/SGPT) (test code = 1742-6) 26 0-55 [facility] Centererum or plasma protein measurement (mass/volume)2020-03-30 18:24:00* Test Item Value Reference Range Interpretation Comments Total Protein (test code = 2885-2) 7.4 6.5-8.1 [facility] Centererum or plasma albumin measurement (mass/volume)2020-03-30 18:24:00* Test Item Value Reference Range Interpretation Comments Albumin (test code = 1751-7) 3.7 3.5-5.0 [facility] CenterPlasma globulin measurement (mass/volume) 2020-03-30 18:24:00* Test Item Value Reference Range Interpretation Comments Globulin (test code = 78878-4) 3.7 2.3-3.5 [facility] Centererum or plasma albumin/globulin mass irnsc9126-20-06 18:24:00* Test Item Value Reference Range Interpretation Comments Albumin/Globulin Ratio (test code = 1759-0) 1.0 0.8-2.0 [facility] Centererum or plasma alkaline phosphatase measurement (enzymatic activity/volume)2020-03-30 18:24:00* Test Item Value Reference Range Interpretation Comments Alkaline Phosphatase (test code = 6768-6) 105 40-150 [facility] Centererum or plasma lipase measurement (enzymatic activity/volume)2020-03-30 18:24:00* Test Item Value Reference Range Interpretation Comments Lipase (test code = 3040-3) 7 8-78 [facility] CenterUrine color dognysxkruxyq4297-60-53 17:25:00* Test Item Value Reference Range Interpretation Comments Urine Color (test code = 5778-6) ALTAGRACIA YELLOW [facility] CenterUrine wopjvmb9264-37-40 17:25:00* Test Item Value Reference Range Interpretation Comments Urine Clarity (test code = 14469-8) CLOUDY CLEAR [facility] Centerpecific gravity of Urine by Test strip 2020-03-30 17:25:00* Test Item Value Reference Range Interpretation Comments Urine Specific [place] (test code = 5811-5) 1.025 1.010-1.[address] [facility] CenterUrine pH measurement by automated test rsgkl7947-70-11 17:25:00* Test Item Value Reference Range Interpretation Comments Urine pH (test code = 95316-9) 6.5 5-7 [facility] CenterUrine leukocyte esterase detection by bbkkbydh3819-31-06 17:25:00* Test Item Value Reference Range Interpretation Comments Urine Leukocyte Esterase (test code = 5799-2) NEGATIVE NEGATIVE [facility] CenterUrine nitrite fptvlyewl4662-68-88 17:25:00* Test Item Value Reference Range Interpretation Comments Urine Nitrite (test code = 81651-2) NEGATIVE NEGATIVE [facility] CenterUrine protein measurement by test strip (mass/volume)2020-03-30 17:25:00* Test Item Value Reference Range Interpretation Comments Urine Protein (test code = 5804-0) 2+ NEGATIVE [facility] CenterUrine glucose sczzsiktf4124-59-55 17:25:00* Test Item Value Reference Range Interpretation Comments Urine Glucose (UA) (test code = 2349-9) NEGATIVE NEGATIVE [facility] CenterUrine ketones detection by automated test lnkln5735-13-21 17:25:00* Test Item Value Reference Range Interpretation Comments Urine Ketones (test code = 76088-9) 3+ NEGATIVE [facility] CenterUrine urobilinogen measurement by test strip (mass/volume)2020-03-30 17:25:00* Test Item Value Reference Range Interpretation Comments Urine Urobilinogen (test code = 62868-0) 1 0.2-1 [facility] CenterUrine total bilirubin measurement (mass/volume)2020-03-30 17:25:00* Test Item Value Reference Range Interpretation Comments Urine Bilirubin (test code = 1978-6) SMALL NEGATIVE [facility] CenterUrine erythrocytes fgndtrmue9906-55-02 17:25:00* Test Item Value Reference Range Interpretation Comments Urine Blood (test code = 76073-9) NEGATIVE NEGATIVE [facility] CenterAutomated urine sediment leukocyte count by microscopy (number/high power field)2020-03-30 17:25:00* Test Item Value Reference Range Interpretation Comments Urine WBC (test code = 5821-4) NONE 0-5 [facility] CenterErythrocytes detection in urine sediment by light foubdzbtlj0149-45-32 17:25:00* Test Item Value Reference Range Interpretation Comments Urine RBC (test code = 79278-8) 0-5 0-5 [facility] CenterBacteria detection in urine sediment by light kijkmvlsiz1329-42-83 17:25:00* Test Item Value Reference Range Interpretation Comments Urine Bacteria (test code = 11969-7) RARE NONE [facility] CenterEpithelial cells detection in urine sediment by light ktuarpunpm2857-21-69 17:25:00* Test Item Value Reference Range Interpretation Comments Urine Epithelial Cells (test code = 82843-4) FEW NONE [facility] CenterUrine human chorionic gonadotropin (hCG) bkxqsoxvp0482-47-38 17:25:00* Test Item Value Reference Range Interpretation Comments Urine Test (test code = 2106-3) NEGATIVE NEGATIVE [facility] CenterNEEDLE EMG, 2 JLPGZWTKT9266-56-60 17:43:00INTRAOPERATIVE MONITORING REPORT Patient Name: Citlali Valdez [facility] Surgery Date: 08/22/2018 Pro: S/N - [id number] Monitoring began at 06:44 and ended at 09:30 Surgeon: Benjamin Gamble M.D. Examining Neurologist: Dora Hatfield MD Monitoring Technologists: KONSTANTIN Ball Procedure:Lumbar Laminectomy [...] the nerve roots monitored remained undisturbed. Dora Hatfield M.D. M51.36, M54.16 UE HOTC5220-73-25 15:49:00Surgical Pathology Report Case: [id number] Authorizing Provider: Benjamin Gamble MD Collected: 08/22/2018 0748 Ordering Location: [facility] PERIOPERATIVE Received: 08/22/2018 0926 SERVICES Pathologist: Yury Modi MD Specimen: Disc L5-S1 VERTEBRAL COLUMN, INTERVERTEBRAL DISC, L5-S1, DISCECTOMY:FRAGMENTS OF FIBROCARTILAGE WITH MILD DEGENERATIVE CHANGESFRAGMENTS OF LIGAMENTUM FLAVUM AND BONE Signing Pathologist Direct Phone Line: [phone] signed by Yury Modi MD on 08/29/2018 at 3:49 [id number]; [id number] disc disease lumbar, lumbar radiculopathy Disc L5-Y3Ivcpbzud in saline labeled "disc L5-S1" is a 2.5 x 2.0 x 0.3 cm aggregate of pink-watkins to valencia-white, rubbery, fibrillar, cartilaginous and osseous tissue. The specimen is entirely submitted in cassette A1 for decalcification. KAH/DB/ew PerformedFL, WOOD HEEL BACK LINER IN OR/30 MINUTE BPXOZFPIRJ2050-31-33 07:46:00Reason for exam:->lumbar stenosisFINAL REPORT Technique: Single intraoperative image of the lumbar spine FINDINGS: Surgical pointer projects posteriorly at L5-S1. Findings were discussed with Dr. Gamble in the operating room who agreed. Signed: Kaovn Amor MDReport Verified Date/Time: 08/22/2018 07:46:20 Reading Location: [facility] Reading Room ALYSIS W/ REFLEX URINE HAFBPLI2943-30-96 15:23:00* Test Item Value Reference Range Interpretation Comments COLOR (BEAKER) (test code = 470) Colorless CLARITY (BEAKER) (test code = 469) Clear SPECIFIC GRAVITY UA (BEAKER) (test code = 468) 1.001 1.001-1 .035 PH UA (BEAKER) (test code = 467) [...] UA (BEAKER) (test code = 466) Negative Negat donnie UROBILINOGEN UA (BEAKER) (test code = 463) 0.2 mg/dL 0.2-1.0 RBC UA (BEAKER) (test code = 519) < /HPF WBC UA (BEAKER) (test code = 520) < /HPF SQUAMOUS EPITHELIAL (BEAKER) (test code = 516) < /HPF SOURCE(BEAKER) (test code = 2795) RAD, CHEST, 2 [id number] 14:33:00Reason for Exam:->preopFINAL REPORT Chest, 2 views. Clinical History: preop Comparison Study: None Findings: The heart and lungs are within normal limits. The pleural spaces are clear. No significant bony or soft tissue abnormalities are seen. Cholecystectomy clips are noted. Impression: No active cardiopulmonary disease. Signed: Rolando Alberto MDReport Verified Date/Time: 08/19/2018 14:33:20 Reading Location: [address] Radiology Reading Room Electronically sign ed by: ROLANDO ALBERTO M.D. on 08/19/2018 02:33 PM BASIC METABOLIC PANEL 2018-08-19 13:27:00* Test Item Value Reference Range Interpretation Comments SODIUM (BEAKER) (test code = 381) 137 meq/L 136-145 POTASSIUM (BEAKER) (test code = 379) 3.8 meq/L 3.5-5.1 CHLORIDE (BEAKER) (test code = 382) 105 meq/L 98-107 CO2 (BEAKER) (test code = 355) 25 meq/L 22-29 BLOOD UREA NITROGEN (BEAKER) (test code = 354) 10 mg/dL 7-21 CREATININE (BEAKER) (test code = 358) 0.70 mg/dL 0.57-1.25 GLUCOSE RANDOM (BEAKER) (test code = 652) 85 mg/dL 70-105 CALCIUM (BEAKER) (test code = 697) 9.5 mg/dL 8.4-10.2 EGFR (BEAKER) (test code = 1092) 94 mL/min/1.73 sq m ESTIMATED GFR IS NOT ACCURATE CREATININE CLEARANCE IN PREDICTING GLOMERULAR FILTRATION RATE. ESTIMATED GFR IS NOT APPLICABLE FOR DIALYSIS PATIENTS. PT/[id number] 13:15:00* Test Item Value Reference Range Interpretation Comments PROTIME (BEAKER) (test code = 759) 13.4 seconds 11.7-14.7 INR (BEAKER) (test code = 370) 1.0 <=5.9 PARTIAL THROMBOPLASTIN TIME (BEAKER) (test code = 760) 34.1 seconds 22.5-36.0 RECOMMENDED COUMADIN/WARFARIN INR THERAPY RANGESSTANDARD DOSE: 2.0 - 3.0 Inclu edmar: PROPHYLAXIS for venous thrombosis, systemic embolization; TREATMENT for saulo ous thrombosis and/or pulmonary embolus.HIGH RISK: Target INR is 2.5-3.5 for pat ients with mechanical heart valves.CBC W/PLT COUNT & AUTO [id number] 13:04:00* Test Item Value Reference Range Interpretation Comments WHITE BLOOD CELL COUNT (BEAKER) (test code = 775) 11.2 K/ L 3.5- 10.5 H RED BLOOD CELL COUNT (BEAKER) (test code = 761) 5.21 M/ L 3.93-5 .22 HEMOGLOBIN (BEAKER) (test code = 410) 14.1 GM/DL 11.2-15.7 HEMATOCRIT (BEAKER) (test code = 411) 45.1 % 34.1-44.9 H MEAN CORPUSCULAR VOLUME (BEAKER) (test code = 753) 86.6 fL 79. 4-94.8 MEAN CORPUSCULAR HEMOGLOBIN (BEAKER) (test code = 751) 27.1 pg 25.6-32.2 MEAN CORPUSCULAR HEMOGLOBIN CONC (BEAKER) (test code = 752) 31.3 GM/DL 32.2-35.5 L RED CELL DISTRIBUTION WIDTH (BEAKER) (test code = 412) 14.7 % 11.7-14.4 H PLATELET COUNT (BEAKER) (test code = 756) 451 K/CU MM 150-450 H MEAN PLATELET VOLUME (BEAKER) (test code = 754) 8.6 fL 9.4-12 .3 L NUCLEATED RED BLOOD CELLS (BEAKER) (test code = 413) 0 /100 WBC 0 -0 NEUTROPHILS RELATIVE PERCENT (BEAKER) (test code = 429) 66 % LYMPHOCYTES RELATIVE PERCENT (BEAKER) (test code = 430) 26 % MONOCYTES RELATIVE PERCENT (BEAKER) (test code = 431) 7 % EOSINOPHILS RELATIVE PERCENT (BEAKER) (test code = 432) 1 % BASOPHILS RELATIVE PERCENT (BEAKER) (test code = 437) 0 % NEUTROPHILS ABSOLUTE COUNT (BEAKER) (test code = 670) 7.40 K/ L 1.56-6.13 H LYMPHOCYTES ABSOLUTE COUNT (BEAKER) (test code = 414) 2.89 K/ L 1.18-3.74 MONOCYTES ABSOLUTE COUNT (BEAKER) (test code = 415) 0.76 K/ L 0. 24-0.36 H EOSINOPHILS ABSOLUTE COUNT (BEAKER) (test code = 416) 0.08 K/ L 0.04-0.36 BASOPHILS ABSOLUTE COUNT (BEAKER) (test code = 417) 0.05 K/ L 0. 01-0.08 IMMATURE GRANULOCYTES-RELATIVE PERCENT (BEAKER) (test code = 2801) 0 % 0-1 RPR, [id number] 05:26:00* Test Item Value Reference Range Interpretation Comments RPR (test code = RPR) Non-Reactive Non-Reactive N [id number] 05:09:00* Test Item Value Reference Range Interpretation Comments WBC (test code = WBC) 12.5 K/cumm 4.4-10.5 H RBC (test code = RBC) 3.29 M/cumm 3.75-5.20 L Hemoglobin (test code = HGB) 9.2 gm/dL 12.2-14.8 L Hematocrit (test code = HCT) 28.0 % 36.5-44.4 L MCV (test code = MCV) 85.3 fL 80-100 N MCH (test code = MCH) 28.0 pg 27.0-32.5 N MCHC (test code = MCHC) 32.9 g/dL 32.0-37.5 N RDW (test code = RDW) 14.1 % 11.5-14.5 N Platelet Count (test code = PLTCT) 353 K/cumm 140-440 N MPV (test code = MPV) 6.3 fL POC Glucose, [id number] 15:18:00* Test Item Value Reference Range Interpretation Comments POC Glucose (test code = POCGLUC) 41 mg/dL 70-115 LL Maurisio specimen Blood Gas+[id number] 15:07:00* Test Item Value Reference Range Interpretation Comments pH, Blood Gas (test code = [...] Drawing Tech ID (test code = DRAWTECH) Respiratory Rate (test code = RESP RATE) 0 Blood Type and [id number] 14:08:00* Test Item Value Reference Range Interpretation Comments ABO type (test code = ABO) O Rh Type (test code = RH) Positive Antibody Screen - [id number] 14:08:00* Test Item Value Reference Range Interpretation Comments Antibody Screen (test code = ABSCR) Negative Hep B Surface [id number] 13:11:00* Test Item Value Reference Range Interpretation Comments Hep Bs Ag (test code = HBSAG) Nonreactive Non-Reactive A CBC LD with [id number] 13:08:00* Test Item Value Reference Range Interpretation Comments WBC (test code = WBC) 11.0 K/cumm 4.4-10.5 H RBC (test code = RBC) 4.01 M/cumm 3.75-5.20 N Hemoglobin (test code = HGB) 11.1 g/dL 12.2-14.8 L Hematocrit (test code = HCT) 34.3 % 36.5-44.4 L MCV (test code = MCV) 85.7 fL 80.0-100.0 N MCH (test code = MCH) 27.7 pg 27.0-32.5 N MCHC (test code = MCHC) 32.3 g/dL 32.0-37.5 N RDW (test code = RDW) 14.3 % 11.5-14.5 N Platelet Count (test code = PLTCT) 393 K/cumm 140-440 N MPV (test code = MPV) 6.7 fL Diff Method (test code = DIFFM) Auto Neutrophil (test code = NEUT) 67.7 % 36.0-70.0 N Lymphocyte (test code = LYMPH) 24.5 % 12.0-44.0 N Monocyte (test code = MONO) 6.2 % 0.0-11.0 N Eosinophil (test code = EOS) 1.2 % 0.0-7.0 N Basophil (test code = BASO) 0.4 % 0.0-2.0 N Neutro Abs (test code = ANEUT) 7.4 K/cumm 1.6-7.4 N Lymph Abs (test code = ALYMPH) 2.7 K/cumm 0.5-4.6 N [place] Abs (test code = AMONO) 0.7 K/cumm 0.0-1.2 N Eos Abs (test code = AEOS) 0.1 K/cumm 0.0-0.7 N Baso Abs (test code = ABASO) 0.0 K/cumm 0.0-0.2 N
--- OUTSIDE RECORDS SUMMARY | 2020-04-23 22:04 | XMS REPORT | Clinical Summary ---
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
--- OUTSIDE RECORDS SUMMARY | 2020-04-23 22:04 | XMS REPORT | Clinical Summary ---
Author Author [facility] Address Unknown Phone Unavailable Care Team Providers Care Housing Inspector Name Role Phone Faby Romero PCP Allergies [...] ot Implanted Type Area Manufactur er 12/10/2019 [id number] / / [id number] Floseal Vhsd Full Strlprep 5ml Cement/Tez Spine Lumbar [id number] - [id number] ler/Adhesi SCI Implanted: Qty: 2 on 08/22/2018 by Benjamin Weston MD Results Not on fileafter 04/23/2019 Insurance Payer Benefit Subscriber ID Type Phone Address Plan / Group MEDICAID - MEDICAID [place] MEDICAID xxxxxxxxx Medica id [facility] Contracted MEDICAID MEDICAID xxxxxxxxx Medicaid [place] [id number] Advance Directives For more information, please contact: [place] [id number] [place] [address] Date Inactivated Comments Code Status Date Activated 08/22/2018 6:17 PM Full Code 08/22/2018 5:30 AM This code status was determined by: Patient
[2020-04-23 23:26] LABS: BASOPHILS # (AUTO) 0.1 (0.0-0.1); BASOPHILS % 0.6 % (0.0-1.0); EOSINOPHILS # (AUTO) 0.4 (0.0-0.4); EOSINOPHILS % 3.4 % (0.0-6.0); HEMATOCRIT 45.2 % (34.2-44.1); HEMOGLOBIN 14.5 g/dL (12.0-16.0); LYMPHOCYTES # (AUTO) 3.5 (1.0-3.2); LYMPHOCYTES % 29.1 % (18.0-39.1); MEAN CORPUSCULAR HEMOGLOBIN 28.4 pg (28-32); MEAN CORPUSCULAR HGB CONC 32.1 g/dL (31-35); MEAN CORPUSCULAR VOLUME 88.6 fL (81-99); MONOCYTES # (AUTO) 0.9 (0.2-0.8); MONOCYTES % 7.7 % (4.4-11.3); NEUTROPHILS # (AUTO) 7.2 (2.1-6.9); PLATELET COUNT 431 x10e3/uL (140-360); RED CELL DISTRIBUTION WIDTH 13.9 % (11.7-14.4)
[2020-04-23] MEDS ORDERED: KETOROLAC TROMETHAMINE 30 MG/ML VIAL IV STA (23:41)
[2020-04-23] MEDS ORDERED: SODIUM CHLORIDE 0.9% 1000ML 1,000 ML IV STA (23:41)
[2020-04-23 23:56] LABS: CLARITY,URINE CLEAR (CLEAR); COLOR,URINE YELLOW (YELLOW)
[2020-04-23 23:57] LABS: ALANINE AMINOTRANSFERASE 24 IU/L (0-55); ALBUMIN 3.8 g/dL (3.5-5.0); ALKALINE PHOSPHATASE 110 IU/L (40-150); ANION GAP 14.4 mmol/L (8-16); BLOOD UREA NITROGEN 12 mg/dL (7-26); BUN/CREATININE RATIO 14 (6-25); CALCIUM 9.1 mg/dL (8.4-10.2); CARBON DIOXIDE 21 mmol/L (22-29); CHLORIDE 108 mmol/L (98-107); CREATINE KINASE 89 IU/L (29-168); CREATININE, SERUM 0.84 mg/dL (0.57-1.11); EST GLOMERULAR FILTRATION RATE > 60 ML/MIN (60-); GLUCOSE 102 mg/dL (74-118); POTASSIUM 3.4 mmol/L (3.5-5.1); SODIUM 140 mmol/L (136-145)
[2020-04-23 23:57] LABS: AMPHETAMINES SCREEN,URINE NEGATIVE (NEGATIVE); BENZODIAZEPINES SCREEN,URINE NEGATIVE (NEGATIVE); KETONES,URINE NEGATIVE (NEGATIVE); LEUKOCYTE ESTERASE ,URINE NEGATIVE (NEGATIVE); NITRITE,URINE NEGATIVE (NEGATIVE); PHENCYCLIDINE SCREEN,URINE NEGATIVE (NEGATIVE); PROTEIN,URINE DIPSTICK NEGATIVE (NEGATIVE)
[2020-04-23 23:58] LABS: BILIRUBIN,URINE NEGATIVE (NEGATIVE); PREGNANCY TEST, URINE NEGATIVE (NEGATIVE); URINE UROBILINOGEN 0.2 mg/dL (0.2 - 1)
[2020-04-24 00:07] LABS: BACTERIA,URINE MODERATE /HPF; EPITHELIAL CELLS,URINE MODERATE /LPF; RBC,URINE >50 /HPF (0-5)
[2020-04-24 00:51] LABS: CREATINE KINASE MB < 1.00 ng/mL (0-4.3)
--- NOTE | 2020-04-24 04:30 | Emergency Department Note ---
History of Present Illnes History of Present Illness Chief Complaint: Abdominal Complaints History of Present Illness This is a 40 year old female arrives to the ED in tears stating she still having abdominal pain, patient states pain is diffuse colitis acting up and she needs Dilaudid. Chief Complaint Comment 40 Y/O FEMALE PT AAOX3 PRESENTS TO ED WITH CHRONIC LLQ PAIN; PT DC'D APPROX 1 WEEK AGO FROM THIS FACILITY; 20 GAUGE IV CATH PLACED TO PTS LEFT AC; BLOOD OBTAINED FOR LAB ANALYSIS, UA OBTAINED; ER MD TO TRIAGE FOR INITIAL EVAL Historian: Patient Arrival Mode: Car Non Destructive Testing Supervisor Required: No Onset (how long ago): day(s) Severity: mild Duration (how long): day(s) Progression: waxing and waning Chronicity: new Past Medical/Family History Physician Review I have reviewed the patient's past medical and family history. Any updates have been documented here. Past Medical History Recent Fever: No Clinical Suspicion of Infectio: No New/Unexplained Change in Ment: No Past Medical History: TIA Other Medical History: IBSD DIVERTICULITIS Past Surgical History: Cholecysctectomy Family History Family history of heart diseas: No Other Last Tetanus: UNKNOWN Review of Systems Review of Systems Constitutional: no symptoms EENTM: no symptoms Cardiovascular: no symptoms Respiratory: no symptoms Gastrointestinal: as per HPI, abdominal pain Genitourinary: no symptoms Musculoskeletal: no symptoms Neurological: no symptoms Psychological: no symptoms Endocrine: no symptoms Hematological/Lymphatic: no symptoms Review of other systems All other systems reviewed and negative. Physical Exam Related Data Allergies: Coded Allergies: No Known Allergies (Unverified , 03/30/20) Triage Vital Signs Vital Signs Date Time Temp Pulse Resp B/P (MAP) Pulse Ox O2 Delivery O2 Flow Rate FiO2 04/23/20 22:40 97.7 97 17 148/79 99 Vital signs reviewed: Yes Physical Exam CONSTITUTIONAL Constitutional: well-developed, well-nourished HENT HENT: normocephalic, atraumatic, oropharynx clear/moist, nose normal HENT L/R: left ext ear normal, right ext ear normal EYES Eyes: PERRL, conjunctivae normal NECK Neck: ROM normal PULMONARY Pulmonary: effort normal, breath sounds normal CARDIOVASCULAR Cardiovascular: regular rhythm, heart sounds normal, capillary refill normal, normal rate GASTROINTESTINAL Abdominal: soft, nontender, bowel sounds normal GENITOURINARY Genitourinary: exam deferred SKIN Skin: warm, dry MUSCULOSKELETAL Musculoskeletal: ROM normal NEUROLOGICAL Neurological: alert, oriented x 3, no gross motor or sensory deficits PSYCHOLOGICAL Psychological: mood/affect normal, judgement normal Results Laboratory Result Diagram: 04/23/20225404/23/202254 Laboratory Laboratory Tests Test 04/23/20 22:55 04/23/20 22:15 White Blood Count 12.15 x10e3/uL (4.8-10.8) Red Blood Count 5.10 x10e6/uL (3.6-5.1) Hemoglobin 14.5 g/dL (12.0-16.0) Hematocrit 45.2 % (34.2-44.1) Mean Corpuscular Volume 88.6 fL (81-99) Mean Corpuscular Hemoglobin 28.4 pg (28-32) Mean Corpuscular Hemoglobin Concent 32.1 g/dL (31-35) Red Cell Distribution Width 13.9 % (11.7-14.4) Platelet Count 431 x10e3/uL (140-360) Neutrophils (%) (Auto) 59.0 % (38.7-80.0) Lymphocytes (%) (Auto) 29.1 % (18.0-39.1) Monocytes (%) (Auto) 7.7 % (4.4-11.3) Eosinophils (%) (Auto) 3.4 % (0.0-6.0) Basophils (%) (Auto) 0.6 % (0.0-1.0) Neutrophils # (Auto) 7.2 (2.1-6.9) Lymphocytes # (Auto) 3.5 (1.0-3.2) Monocytes # (Auto) 0.9 (0.2-0.8) Eosinophils # (Auto) 0.4 (0.0-0.4) Basophils # (Auto) 0.1 (0.0-0.1) Absolute Immature Granulocyte (auto 0.03 x10e3/uL (0-0.1) Sodium Level 140 mmol/L (136-145) Potassium Level 3.4 mmol/L (3.5-5.1) Chloride Level 108 mmol/L (98-107) Carbon Dioxide Level 21 mmol/L (22-29) Anion Gap 14.4 mmol/L (8-16) Blood Urea Nitrogen 12 mg/dL (7-26) Creatinine 0.84 mg/dL (0.57-1.11) Estimat Glomerular Filtration Rate > 60 ML/MIN (60-) BUN/Creatinine Ratio 14 (6-25) Glucose Level 102 mg/dL (74-118) Calcium Level 9.1 mg/dL (8.4-10.2) Total Bilirubin 0.3 mg/dL (0.2-1.2) Aspartate Amino Transf (AST/SGOT) 15 IU/L (5-34) Alanine Aminotransferase (ALT/SGPT) 24 IU/L (0-55) Alkaline Phosphatase 110 IU/L (40-150) Creatine Kinase 89 IU/L (29-168) Creatine Kinase MB < 1.00 ng/mL (0-4.3) Troponin I < 0.05 ng/mL (0.0-0.40) Total Protein 7.6 g/dL (6.5-8.1) Albumin 3.8 g/dL (3.5-5.0) Globulin 3.8 g/dL (2.3-3.5) Albumin/Globulin Ratio 1.0 (0.8-2.0) Urine Color Yellow (YELLOW) Urine Clarity Clear (CLEAR) Urine pH 7 (5 - 7) Urine Specific [place] 1.030 (1.010-1.025) Urine Protein Negative (NEGATIVE) Urine Glucose (UA) Negative (NEGATIVE) Urine Ketones Negative (NEGATIVE) Urine Blood Moderate (NEGATIVE) Urine Nitrite Negative (NEGATIVE) Urine Bilirubin Negative (NEGATIVE) Urine Urobilinogen 0.2 mg/dL (0.2 - 1) Urine Leukocyte Esterase Negative (NEGATIVE) Urine RBC >50 /HPF (0-5) Urine WBC 6-10 /HPF (0-5) Urine Epithelial Cells Moderate /LPF (NONE) Urine Bacteria Moderate /HPF (NONE) Urine Test Negative (NEGATIVE) Lipase 25 U/L (8-78) Urine Opiates Screen Negative (NEGATIVE) Urine Methadone Screen Negative (NEGATIVE) Urine Barbiturates Screen Negative (NEGATIVE) Urine Phencyclidine Screen Negative (NEGATIVE) Urine Amphetamines Screen Negative (NEGATIVE) Urine Methamphetamines Screen Negative (NEGATIVE) Urine Benzodiazepines Screen Negative (NEGATIVE) Urine Cocaine Screen Positive (NEGATIVE) Urine Cannabinoids Screen Positive (NEGATIVE) Lab results reviewed: Yes Critical Care Time Subsequent provider I assumed direction of critical care for this patient from another provider of my specialty. Assessment & Plan Reassessment Reassessment 40-year-old female arrives to ED with complaints of diffuse abdominal pain. Patient with multiple ER visits over the past 2 weeks for the same complaints. Patient has received 3 CT scans in the span of 2 weeks for her abdominal pain. Patient requesting Dilaudid and Zofran with Benadryl for her abdominal pain. Spoke the patient at length and nonnarcotic pain options offered which patient did take. Patient had a normal abdominal exam upon distraction. I see no concerns of a acute surgical abdomen at this time. Spoke to patient at length about E for outpatient follow-up. I personally made the patient appointment on Saturday morning with Dr. Vasquez. Patient's urine drips and came back positive for cocaine which she admits to using. Patient informed of the vasoconstrictive natures of cocaine and how this may lead to ischemic colitis this was stated in a language that was understandable/comprehensible to the patient. Patient hemodynamically stable, and return steady gait and tolerating oral intake at time of discharge. Patient understands she is welcome to return to the ED, h owever, her pain will only be managed with nonnarcotic pharmacological measures at this time. Patient expressed understanding Assessment & Plan Final Impression: (1) COCAINE ABUSE, UNCOMPLICATED (2) Diverticulitis Assessment & Plan cbc, cmp, re-evAL Depart Disposition: HOME, SELF-CARE Last Vital Signs Date Time Temp Pulse Resp B/P (MAP) Pulse Ox O2 Delivery O2 Flow Rate FiO2 04/23/20 22:40 97.7 97 17 148/79 99 Medications in the ED Sodium Chloride 1,000 ml @ 0 mls/hr Q0M STAT IV ; Start 04/23/20 at 23:41; Stop 04/23/20 at 23:42 Ketorolac Tromethamine 30 mg ONCE STAT IV ; Start 04/23/20 at 23:41; Stop 04/23/20 at 23:42 OLIVIA RUTH DO April 24, 2020 04:30
== END 2020-04-23 23:30 | disposition home or self-care (01) ==
LOC: ER 22:01
DX: R10.32 Left lower quadrant pain (principal); K57.92 Diverticulitis of intestine, part unspecified, without perforation or abscess without bleeding; F14.10 Cocaine abuse, uncomplicated
CPT/HCPCS: 36415; 80053; 80307; 81001; 81025; 82550; 82553; 83690; 84484; 85025